=== PATIENT | male | born 1955 | race Caucasian/White ===

== ENCOUNTER → 2019-12-19 12:27 | Outpatient (CLI) | payer OTHER, SELFPAY ==
[2019-12-20 17:35] LABS: Covid-19 Nasal PCR Sendout UK NOT DETECTED
== END ==
PROVIDERS: PCP Family Medicine; Visit Provider Nurse Practitioner
DX: Z03.818 Encounter for observation for suspected exposure to other biological agents ruled out (principal)
CPT/HCPCS: U0003

== ENCOUNTER → 2020-11-19 06:59 | Outpatient (CLI) | payer OTHER, SELFPAY ==
[2020-11-19 07:41] LABS: Adenovirus,PCR Not Detected (NotDetected); Bordetella Pertussis Not Detected (NotDetected); Chlamydophila Pneumoniae, PCR Not Detected (NotDetected); Coronavirus 19, PCR Not Detected (NotDetected); Coronavirus 229E Not Detected (NotDetected); Coronavirus NL63 Not Detected (NotDetected); Coronavirus OC43 Not Detected (NotDetected); Coronovirus HKU1,PCR Not Detected (NotDetected); Human Metapneumovirus Not Detected (NotDetected); Influenza A, PCR Not Detected (NotDetected); Influenza AH1, 2009 Not Detected (NotDetected); Influenza AH1, PCR Not Detected (NotDetected); Influenza AH3,PCR Not Detected (NotDetected); Influenza B, PCR Not Detected (NotDetected); Mycoplasma Pneumoniae, PCR Not Detected (NotDetected); Parainfluenza 1, PCR Not Detected (NotDetected); Parainfluenza 2, PCR Not Detected (NotDetected); Parainfluenza 3, PCR Not Detected (NotDetected); Parainfluenza 4, PCR Not Detected (NotDetected); Respiratory Syncytial Virus Not Detected (NotDetected); Rhinovirus/Enterovirus Not Detected (NotDetected)
[2020-11-19 07:49] LABS: Basophils % 0.7 % (0.1-2.0); Eosinophils # 0.2 K/mm3 (0.0-0.4); Eosinophils % 3.9 % (0.1-12.0); Hematocrit 39.5 % (42.0-52.0); Hemoglobin 12.8 g/dL (14.1-18.0); Lymphocytes # 1.5 K/mm3 (0.7-4.5); Lymphocytes % 27.1 % (10-50); Mean Corpuscular HGB Conc 32.3 g/dL (31.8-35.4); Mean Corpuscular Hemoglobin 25.4 pg (27.0-31.2); Mean Corpuscular Volume 78.7 fl (80-94); Monocytes # 0.5 K/mm3 (0.1-1.0); Neutrophils # 3.4 K/mm3 (1.8-7.8); Neutrophils % 60.4 % (37.0-80.0); Platelet Count 312 K/mm3 (142-424); Red Blood Count 5.03 M/mm3 (4.60-6.20); Red Cell Distribution Width 15.8 % (11.5-17.5); White Blood Count 5.6 K/mm3 (4.8-10.8)
== END ==
PROVIDERS: PCP Family Medicine; Visit Provider Nurse Practitioner
DX: Z11.52 Encounter for screening for COVID-19 (principal); J06.9 Acute upper respiratory infection, unspecified
CPT/HCPCS: 36415; 85025; 87581; 87633; 87798

== ENCOUNTER → 2023-02-07 23:25 | Outpatient (CLI) | payer BC, MEDICARE, SELFPAY | PROVIDERS: PCP Nurse Practitioner; Visit Provider Nurse Practitioner | DX: L03.032 Cellulitis of left toe (principal); B95.7 Other staphylococcus as the cause of diseases classified elsewhere | CPT/HCPCS: 87070; 87205 ==

== ENCOUNTER 2023-11-25 13:05 | Outpatient (CLI) | payer MEDICARE, BC, SELFPAY ==
[2023-11-25 19:09] LABS: Basophils % 0.5 % (0.1-2.0); Eosinophils # 0.2 K/mm3 (0.0-0.4); Eosinophils % 4.1 % (0.1-12.0); Hematocrit 45.6 % (42.0-52.0); Hemoglobin 15.2 g/dL (14.1-18.0); Lymphocytes # 1.5 K/mm3 (0.7-4.5); Lymphocytes % 29.2 % (10-50); Mean Corpuscular HGB Conc 33.3 g/dL (31.8-35.4); Mean Corpuscular Hemoglobin 31.5 pg (27.0-31.2); Mean Corpuscular Volume 94.7 fl (80-94); Mean Platelet Volume 8.5 fl (7.4-10.4); Monocytes # 0.5 K/mm3 (0.1-1.0); Monocytes % 8.6 % (1.7-9.3); Neutrophils % 57.5 % (37.0-80.0); Platelet Count 252 K/mm3 (142-424); Red Blood Count 4.82 M/mm3 (4.60-6.20); Red Cell Distribution Width 14.2 % (11.5-17.5); White Blood Count 5.2 K/mm3 (4.8-10.8)
[2023-11-25 19:12] LABS: Hemoglobin A1C 5.8 % (4.0-6.0)
[2023-11-25 19:57] LABS: Alanine Aminotransferase 36 U/L (12-78); Alkaline Phosphatase 76 U/L (38-126); Anion Gap 10.9 mEq/L (5-15); Aspartate Amino Transferase 35 U/L (17-59); Bilirubin,Total 0.6 mg/dl (0.2-1.3); Blood Urea Nitrogen 16 mg/dl (9-20); Carbon Dioxide 24 mmol/L (22.0-30.0); Chloride 106 mmol/L (98-107); Estimated Glomerular Filt Rate 96 ml/min (>60); GFR (African American) 117 ML/MIN (>60); Glucose 94 mg/dl (74-100); Potassium 3.9 mmoL/L (3.5-5.1); Sodium 137 mmol/L (136-145); Total Protein,Serum 6.5 g/dl (6.3-8.2)
[2023-11-25 20:01] LABS: 25-OH Vitamin D, Total 39.7 ng/mL (30-100)
[2023-11-25 20:05] LABS: Erythrocyte Sedimentation Rate 8 mm/hr (0-20)
[2023-11-25 20:06] LABS: Albumin Level 3.9 g/dl (3.5-5.0); Albumin/Globulin Ratio 1.5 (1.1-1.8); Globulin 2.6 g/dL (1.3-3.2)
[2023-11-25 20:13] LABS: C-Reactive Protein 6.2 mg/L (0-4)
[2023-11-25 20:53] LABS: Prostate Specific Ag Screen 3.3 ng/ml (0.0-4.0); Thyroid Stimulating Hormone 0.77 uIU/mL (0.465-4.68)
[2023-11-25 21:12] LABS: Vitamin B12 333 pg/mL (239-931)
[2023-11-27 14:16] LABS: Testosterone,Total 234 ng/dL (264-916)
[2023-11-27 17:59] LABS: Anti-Centromere B Antibodies <0.2 AI (0.0-0.9); Anti-DNA (DS) Ab Qn <1 IU/mL (0-9); Anti-Jo-1 <0.2 AI (0.0-0.9); Anti-Smith Antibody <0.2 AI (0.0-0.9); Antichromatin Antibodies <0.2 AI (0.0-0.9); Antiscleroderma-70 Antibodies <0.2 AI (0.0-0.9); RNP Antibodies 0.4 AI (0.0-0.9); Sjogren's Anti-SS-A <0.2 AI (0.0-0.9); Sjogren's Anti-SS-B <0.2 AI (0.0-0.9)
== END 2023-11-25 23:59 | disposition home or self-care (01) ==
LOC: LAB.DROPOF 11-26 10:11
PROVIDERS: PCP Nurse Practitioner; Visit Provider Nurse Practitioner
DX: R53.83 Other fatigue (principal); I10 Essential (primary) hypertension; M25.50 Pain in unspecified joint; F32.A Depression, unspecified; E66.9 Obesity, unspecified; Z68.39 Body mass index [BMI] 39.0-39.9, adult; Z12.5 Encounter for screening for malignant neoplasm of prostate
CPT/HCPCS: 80053; 82306; 82607; 83036; 84403; 84439; 84443; 85025; 85651; 86140; 86225; 86235; G0103

== ENCOUNTER → 2023-12-13 12:13 | Outpatient (CLI) | payer MEDICARE, BC, SELFPAY | LOC: SL 12:17 | PROVIDERS: PCP Nurse Practitioner; Visit Provider Nurse Practitioner | DX: G47.33 Obstructive sleep apnea (adult) (pediatric) (principal); G47.36 Sleep related hypoventilation in conditions classified elsewhere | CPT/HCPCS: G0399 ==

== ENCOUNTER 2024-01-16 13:35 | Emergency (ER) | payer MEDICARE, BC, SELFPAY ==
--- NOTE | 2024-01-16 13:48 | ECG_ITS ---
APPROVED REPORT Exam: Resting ECG HR:82 bpm ECG Measurements Heart Rate 82 AXES KS 188 P 53 QRSd 157 QRS 220 QT 419 T 35 QTc 457 Conclusion Left bundle branch block Left axis deviation Electronically signed by : POLY JAMISON, 01/16/2024 14:54:09
[2024-01-16 13:49] VITALS: BP 191/116; PULSE 76; RESP 16; TEMP 36.4; O2SAT 98; BMI 38.0
--- NOTE | 2024-01-16 13:55 | PC.NURSE ---
dr gonzalez at bedside
[2024-01-16 14:00] VITALS: BP 155/92; PULSE 76; O2SAT 97
--- NOTE | 2024-01-16 14:25 | CT_ITS ---
FINAL REPORT TECHNIQUE: NASCET technique utilized for stenosis evaluation. This study was performed with techniques to keep radiation doses as low as reasonably achievable (ALARA). Individualized dose reduction techniques using automated exposure control or adjustment of mA and/or kV according to the patient's size were employed. CLINICAL HISTORY: confusion, emotional swings, imbalance FINDINGS: RIGHT CAROTID: No significant stenosis is seen of the cervical common or internal carotid artery. LEFT CAROTID: No significant stenosis seen of the cervical common or internal carotid artery. VERTEBRALS: The vertebral arteries are patent and codominant. No significant stenosis is present. IMPRESSION: No significant arterial abnormality. Reviewed, Interpreted and Dictated by Dm Carranza MD Transcribed by Leila Cerrato Authenticated and [facility]
--- NOTE | 2024-01-16 14:25 | CT_ITS ---
FINAL REPORT TECHNIQUE: thin section axial CT with and without IV contrast supplemented with multiplanar 3-D reconstruction of the head. This study was performed with techniques to keep radiation doses as low as reasonably achievable, (ALARA)individualized dose reduction techniques using automated exposure control or adjustment of mA and/or kV according to the patient's size were employed. CLINICAL HISTORY: confusion, emotional swings, imbalance FINDINGS: The cranial circulation is unremarkable. There is no significant stenosis, aneurysm or occlusion. IMPRESSION: No acute process. Reviewed, Interpreted and Dictated by Dm Carranza MD Transcribed by Lelia Cerrato Authenticated and . [facility]
--- NOTE | 2024-01-16 14:25 | CT_ITS ---
FINAL REPORT TECHNIQUE: Axial CT images were performed through the head. Coronal reformatted images were submitted. This study was performed with techniques to keep radiation doses as low as reasonably achievable (ALARA). Individualized dose reduction techniques using automated exposure control or adjustment of mA and/or kV according to the patient's size were employed. CLINICAL HISTORY: confusion, emotional swings, imbalance FINDINGS: There is mild atrophy. The ventricles are normal in size. There is no evidence of hemorrhage. There is no mass or edema identified. There is no abnormal extra-axial fluid seen. There is a shirin cisterna magna. There is a retention cyst or polyp in the right maxillary sinus. IMPRESSION: No acute intracranial process. Reviewed, Interpreted and Dictated by Dm Carranza MD Transcribed by Leila Cerrato Authenticated and . [facility]
[2024-01-16 14:30] VITALS: BP 141/93; PULSE 77; O2SAT 97
--- NOTE | 2024-01-16 14:33 | HMH.EDGENADL ---
Discharge Plan Disposition Patient Disposition: Home, Self-Care Prescriptions Prescriptions: No Action metoprolol succinate 100 mg tablet extended release 24 hr 100 mg PO DAILY famotidine [Pepcid] 20 mg tablet 20 mg PO HS omeprazole 20 mg capsule,delayed release(DR/EC) 40 mg PO DAILY clonidine HCl 0.1 mg tablet 0.1 mg PO HS Qty: 30 2RF Repatha SureClick 140 mg/mL pen injector 140 mg SQ Q2W Referrals Follow up/Referrals: Jose Alfredo Tillman [Primary Care Provider] - See instructions Activity Restrictions/Add. Instructions Additional Instructions/Restrictions: As discussed there is no emergent medical condition identified today however all physiologic pathology have not been ruled out and I recommend you follow-up with your primary care doctor as well as a neurologist. You may return with any significant worsening of your symptoms. Clinical Impressions Clinical Impression: Feeling of sadness, Encounter for medical screening examination Print Language Print Language: Sinhala Discharge ED Provider: Quang Vallejo General Adult HPI <Quang Vallejo MD - Last Filed: 01/16/24 15:17> General Chief complaint: Anxiety Stated complaint: weakness Time Seen by Provider: 01/16/24 13:45 Mode of Arrival: EMS Source of Information: Patient and Spouse Limitations: No Limitations Description of Symptoms (Recalled from ER Triage Doc. by RN): pt arrives via EMS and transferred himself from the EMS stretcher to our bed, however, when he stood up he was unstable on his feet and almost fell. pt and state the pt is overly emotional, anxious, intermittant confusion, and he does not want to leave the house. pt is weeping at this time. 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 pt started [employer] 1 month ago. pts states this began the evening of 01/08 when he started c/o chest fluttering. pt was seen at [facility] the next day. The only findings were LBBB, 1st degree av block, and K 3.2 History of Present Illness HPI narrative: Please note that above description of symptoms, in this electronic medical record under categorization of recalled from ER triage doctor by RN are reflective of an initial nursing assessment, however, is not reflective of my full history and physical exam that was personally taken and clarified. Consequentially, this preceding description of symptoms, which may include the patient's categorized chief complaint in the EMR, do not reflect my personal clinical impression, and the ultimate description of history of present illness and patient stated complaints should be deferred to this section of the note. Unless stated otherwise or congruent with this section of the note, additional signs, symptoms, or incongruence should be interpreted as inaccurate with my clinical impression. Related Data Home Medications ?Medication ?Instructions ?Recorded ?Confirmed evolocumab 140 mg/mL subcutaneous 140 mg SQ Q2W 11/25/23 11/25/23 pen injector (Repatha SureClick) famotidine 20 mg tablet (Pepcid) 20 mg PO HS 11/25/23 11/25/23 metoprolol succinate 100 mg 100 mg PO DAILY 11/25/23 11/25/23 tablet,extended release 24 hr omeprazole 20 mg capsule,delayed 40 mg PO DAILY 11/25/23 11/25/23 release Previous Rx's ?Medication ?Instructions ?Recorded clonidine HCl 0.1 mg tablet 0.1 mg PO HS #30 tabs 11/25/23 Allergies Allergy/AdvReac Type Severity Reaction Status Date / Time gabapentin Allergy Other Verified 01/16/24 14:00 [facility] <Quang Vallejo MD - Last Filed: 01/16/24 15:17> [facility] Disclaimer: The information contained in this section may have been updated after the patient was seen, as this information can be updated by other users. Medical History Sleep apnea Arthralgia Depression Essential hypertension Acute midline low back pain Social History Smoking Status: Never smoker alcohol intake: never current occupational status: employed Travel in the last 8 weeks: None Other Medical History Have you received the Pneumonia Vaccine: No <Quang Vallejo MD - Last Filed: 01/16/24 15:17> ROS Obtained: Yes All systems reviewed & no additional complaints except as documented Physical Exam <Quang Vallejo MD - Last Filed: 01/16/24 15:17> General General appearance: alert Head Head exam: atraumatic and normocephalic Eye Eye exam: Present normal appearance, PERRL and EOMI Neck Neck exam: Present normal inspection, full ROM and trachea midline Respiratory Respiratory exam: Present normal lung sounds bilaterally; Absent respiratory distress, wheezes, stridor, accessory muscle use or prolonged expiratory phase Cardiovascular Cardiovascular exam: Present regular rate, normal rhythm and other (Pulses equal symmetric in upper and lower extremities) Abdominal Exam Abdominal exam: Present soft; Absent distention, tenderness or pulsatile mass Extremities Exam Extremities exam: Absent edema Neurological Exam Neurological exam: Present alert, oriented X3, CN II-XII intact and normal gait; Absent motor sensory deficit Skin Skin exam: Present warm and dry; Absent diaphoresis or erythema Medical Decision Making <Quang Vallejo MD - Last Filed: 01/16/24 15:17> Medical Records Medical records reviewed: Yes I reviewed the patient's medical records. Screening: Per USPSTF and CDC recommendations, given the prevalence of disease in our region, it is our hospital?s policy to screen for HIV and viral Hepatitis for all patients aged 18 and over and those with ongoing risk factors. Christopher Inquiry Pt receiving controlled substance: No Christopher was queried for this patient: No Vital Signs: 01/16/24 13:49 01/16/24 14:00 01/16/24 14:30 Temperature 97.6 F Temperature Source Oral Pulse Rate 76 77 Pulse Rate [Left] 76 Respiratory Rate 16 Blood Pressure 155/92 H 141/93 H Blood Pressure [Right Arm] 191/116 H Blood Pressure Mean [Right Arm] 141 Blood Pressure Source [Right Arm] Automatic Cuff Blood Pressure Position [Right Arm] Sitting 02 Sat by Pulse Oximetry 98 97 97 Oxygen Delivery Method Room Air 01/16/24 15:00 Temperature Temperature Source Pulse Rate 70 Pulse Rate [Left] Respiratory Rate Blood Pressure 143/84 H Blood Pressure [Right Arm] Blood Pressure Mean [Right Arm] Blood Pressure Source [Right Arm] Blood Pressure Position [Right Arm] 02 Sat by Pulse Oximetry 96 Oxygen Delivery Method Lab Data Lab Results 01/16/24 13:40: WBC 7.2, RBC 5.08, Hgb 16.3, Hct 46.2, MCV 90.9, MCH 32.1 H, MCHC 35.3, RDW 14.0, Plt Count 243, MPV 7.6, Neut % (Auto) 44.0, Lymph % (Auto) 45.1, Cross % (Auto) 8.0, Eos % (Auto) 2.1, Baso % (Auto) 0.7, Neut # (Auto) 3.2, Lymph # (Auto) 3.3, Cross # (Auto) 0.6, Eos # (Auto) 0.2, Baso # (Auto) 0.1, Sodium 135 L, Potassium 3.7, Chloride 105, Carbon Dioxide 27, Anion Gap 6.7, BUN 14, Creatinine 0.90, Estimated Creat Clear 129, Estimated GFR 84, Est GFR ( Amer) 102, Glucose 109 H, Calcium 9.2, Magnesium 2.0, Total Bilirubin 0.9, AST 52, ALT 45, Alkaline Phosphatase 69, Ammonia < 9 L, Troponin I < 0.01, Total Protein 7.1, Albumin 4.4, Globulin 2.7, Albumin/Globulin Ratio 1.6, TSH 0.80, Thyroxine (T4) 12.6 H, HIV 1&2 Antibody Rapid Nonreactive 01/16/24 15:26: Urine Opiates Screen Negative, Urine Methadone Screen Negative, Ur Barbituates Screen Negative, Ur Phencyclidine Scrn Negative, Ur Amphetamines Screen Negative, U Benzodiazepines Scrn Negative, Urine Cocaine Screen Negative, U Marijuana (THC) Screen Negative 01/16/24 15:27: Urine Color Yellow, Urine Appearance Clear, Urine pH 6.5, Ur Specific [place] 1.010, Urine Protein Negative, Urine Glucose (UA) Negative, Urine Ketones Negative, Urine Blood Negative, Urine Nitrate Negative, Urine Bilirubin Negative, Urine Urobilinogen 0.2, Ur Leukocyte Esterase Negative, Urine RBC None, Urine WBC None, Ur Squamous Epith Cells None, Urine Bacteria None 01/16/24 13:40 01/16/24 13:40 Orders (Tests/Meds): ED MEDICATIONS Generic Name Dose Route Start Last Admin Trade Name Freq PRN Reason Stop Dose Admin Sodium Chloride 10 ml 01/16/24 14:51 01/16/24 14:52 Sodium Chloride 0.9% 10ml Syr (Rad Only) IV 02/15/24 14:50 10 ml NEEDED PRN Administration Maintain IV Site Discontinued Medications Generic Name Dose Route Start Last Admin Trade Name Freq PRN Reason Stop Dose Admin Iopamidol 80 ml 01/16/24 14:51 01/16/24 14:52 Iopamidol-370 (76%);100ml Bottle IV 01/16/24 14:52 80 ml ONCE ONE Administration Sodium Chloride 50 ml 01/16/24 14:51 01/16/24 14:51 0.9 % Sodium Chloride 50 Ml Vial IV 01/16/24 14:52 50 ml ONCE ONE Administration ORDERS Category Date Time Status CT angio head Stat Cat Scan 01/16/24 14:[address] angio neck Stat Cat Scan 01/16/24 14:[address] head/brain wo con Stat Cat Scan 01/16/24 14:25 Completed Ammonia Stat Lab 01/16/24 13:40 Completed CBC w/Auto Diff [Complete Blood Count Auto Diff] Stat Lab 01/16/24 13:40 Completed CMP [Comprehensive Metabolic Panel] Stat Lab 01/16/24 13:40 Completed HIV (1&2) Antibody Rapid Stat Lab 01/16/24 13:40 Completed Hep C Ab with Reflex to RNA Stat Lab 01/16/24 13:40 Received Magnesium Stat Lab 01/16/24 13:40 Completed T4 (Thyroxine) Stat Lab 01/16/24 13:40 Completed TSH [Thyroid Stimulating Hormone] Stat Lab 01/16/24 13:40 Completed Trop I [Troponin I] Stat Lab 01/16/24 13:40 Completed Troponin I Q3H Lab 01/16/24 17:30 Ordered Troponin I Q3H Lab 01/16/24 20:30 Ordered UA [Urinalysis and Microscopic] Stat Lab 01/16/24 15:27 Completed UDS [Drug Screen,Urine] Stat Lab 01/16/24 15:26 Completed Medical Decision Narrative: Is a 68-year-old male history of hypertension and sleep apnea presenting with multiple complaints. Per patient and family, patient has had 1 month of progressive cognitive decline. States that he was seen by family doctor because patient has random emotional outburst where he just becomes tearful for no reason. This happens throughout the day, randomly, patient appears to have no control over this has not happened multiple times in the room just as I was talking to him. Per family and patient, he is also having multiple memory lapses. States that they have lived in the same house for over 30 years, patient is forgetting where things are when they have been there the entire time. Patient forgetting names, places, people and things. Intermittently feeling lightheaded when standing up, but not having any syncopal episodes, chest pain, nausea, vomiting, fevers, chills, unintended weight loss. Patient denies any head trauma. 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 I do tend to agree. Patient denies family history of dementia, seizures, any other neurologic deficits. Was seen at [facility] on 01/09, full workup including CT head without contrast was completely negative. I reviewed labs and imaging results on paperwork they brought in. History obtained with patient, family, outside hospital paperwork. On my independent evaluation of patient, well-appearing. Placed on continuous cardiac monitoring and pulse oximetry and patient is hypertensive 191/116, nontachycardic 76 beats a minute and saturating appropriately on room air at 98%. Patient neurologically intact including cranial nerve, cerebellar, motor and sensory exams. 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 Cardiopulmonary exam within normal limits with no murmurs gallops or rubs, no lower extremity edema, pulses equal and symmetric. Abdomen soft, nontender, nondistended. Intermittently bursting into tears for no reason. My differential includes frontotemporal dementia versus other progressive cognitive decline, metabolic abnormality, endocrinologic abnormality, depression, anxiety, PTSD, other psychiatric comorbidities, among others. EKG independently interpreted and patient has what appears to be incomplete left bundle branch block with widened QRS 157 ms. TN 188, QTc 457 prolonged. Left axis deviation. No acute ischemic change. Labs and imaging orders placed. On independent interpretation, nonactionable hematologic workup. Negative ammonia. Negative troponin. T4 a little high at 12.6. TSH pending. Imaging pending at time of handoff to oncoming physician [employer] disclaimer Much of this encounter note is an electronic manager technical spoken language to printed text. Electronic manager technical of the spoken language may permit errors. Although I have reviewed the note, some errors may still exist. <Sabino Moody MD - Last Filed: 01/16/24 16:30> Vital Signs: 01/16/24 13:49 01/16/24 14:00 01/16/24 14:30 Temperature 97.6 F Temperature Source Oral Pulse Rate 76 77 Pulse Rate [Left] 76 Respiratory Rate 16 Blood Pressure 155/92 H 141/93 H Blood Pressure [Right Arm] 191/116 H Blood Pressure Mean [Right Arm] 141 Blood Pressure Source [Right Arm] Automatic Cuff Blood Pressure Position [Right Arm] Sitting 02 Sat by Pulse Oximetry 98 97 97 Oxygen Delivery Method Room Air 01/16/24 15:00 Temperature Temperature Source Pulse Rate 70 Pulse Rate [Left] Respiratory Rate Blood Pressure 143/84 H Blood Pressure [Right Arm] Blood Pressure Mean [Right Arm] Blood Pressure Source [Right Arm] Blood Pressure Position [Right Arm] 02 Sat by Pulse Oximetry 96 Oxygen Delivery Method Lab Data Lab results reviewed: Yes I reviewed the patient's lab results. Lab Results 01/16/24 13:40: WBC 7.2, RBC 5.08, Hgb 16.3, Hct 46.2, MCV 90.9, MCH 32.1 H, MCHC 35.3, RDW 14.0, Plt Count 243, MPV 7.6, Neut % (Auto) 44.0, Lymph % (Auto) 45.1, Cross % (Auto) 8.0, Eos % (Auto) 2.1, Baso % (Auto) 0.7, Neut # (Auto) 3.2, Lymph # (Auto) 3.3, Cross # (Auto) 0.6, Eos # (Auto) 0.2, Baso # (Auto) 0.1, Sodium 135 L, Potassium 3.7, Chloride 105, Carbon Dioxide 27, Anion Gap 6.7, BUN 14, Creatinine 0.90, Estimated Creat Clear 129, Estimated GFR 84, Est GFR ( Amer) 102, Glucose 109 H, Calcium 9.2, Magnesium 2.0, Total Bilirubin 0.9, AST 52, ALT 45, Alkaline Phosphatase 69, Ammonia < 9 L, Troponin I < 0.01, Total Protein 7.1, Albumin 4.4, Globulin 2.7, Albumin/Globulin Ratio 1.6, TSH 0.80, Thyroxine (T4) 12.6 H, HIV 1&2 Antibody Rapid Nonreactive 01/16/24 15:26: Urine Opiates Screen Negative, Urine Methadone Screen Negative, Ur Barbituates Screen Negative, Ur Phencyclidine Scrn Negative, Ur Amphetamines Screen Negative, U Benzodiazepines Scrn Negative, Urine Cocaine Screen Negative, U Marijuana (THC) Screen Negative 01/16/24 15:27: Urine Color Yellow, Urine Appearance Clear, Urine pH 6.5, Ur Specific [place] 1.010, Urine Protein Negative, Urine Glucose (UA) Negative, Urine Ketones Negative, Urine Blood Negative, Urine Nitrate Negative, Urine Bilirubin Negative, Urine Urobilinogen 0.2, Ur Leukocyte Esterase Negative, Urine RBC None, Urine WBC None, Ur Squamous Epith Cells None, Urine Bacteria None Orders (Tests/Meds): ED MEDICATIONS Generic Name Dose Route Start Last Admin Trade Name Freq PRN Reason Stop Dose Admin Sodium Chloride 10 ml 01/16/24 14:51 01/16/24 14:52 Sodium Chloride 0.9% 10ml Syr (Rad Only) IV 02/15/24 14:50 10 ml NEEDED PRN Administration Maintain IV Site Discontinued Medications Generic Name Dose Route Start Last Admin Trade Name Freq PRN Reason Stop Dose Admin Iopamidol 80 ml 01/16/24 14:51 01/16/24 14:52 Iopamidol-370 (76%);100ml Bottle IV 01/16/24 14:52 80 ml ONCE ONE Administration Sodium Chloride 50 ml 01/16/24 14:51 01/16/24 14:51 0.9 % Sodium Chloride 50 Ml Vial IV 01/16/24 14:52 50 ml ONCE ONE Administration ORDERS Category Date Time Status CT angio head Stat Cat Scan 01/16/24 14:[address] angio neck Stat Cat Scan 01/16/24 14:[address] head/brain wo con Stat Cat Scan 01/16/24 14:25 Completed Ammonia Stat Lab 01/16/24 13:40 Completed CBC w/Auto Diff [Complete Blood Count Auto Diff] Stat Lab 01/16/24 13:40 Completed CMP [Comprehensive Metabolic Panel] Stat Lab 01/16/24 13:40 Completed HIV (1&2) Antibody Rapid Stat Lab 01/16/24 13:40 Completed Hep C Ab with Reflex to RNA Stat Lab 01/16/24 13:40 Received Magnesium Stat Lab 01/16/24 13:40 Completed T4 (Thyroxine) Stat Lab 01/16/24 13:40 Completed TSH [Thyroid Stimulating Hormone] Stat Lab 01/16/24 13:40 Completed Trop I [Troponin I] Stat Lab 01/16/24 13:40 Completed Troponin I Q3H Lab 01/16/24 17:30 Ordered Troponin I Q3H Lab 01/16/24 20:30 Ordered UA [Urinalysis and Microscopic] Stat Lab 01/16/24 15:27 Completed UDS [Drug Screen,Urine] Stat Lab 01/16/24 15:26 Completed Medical Decision Narrative: Is a 68-year-old male history of hypertension and sleep apnea presenting with multiple complaints. Per patient and family, patient has had 1 month of progressive cognitive decline. States that he was seen by family doctor because patient has random emotional outburst where he just becomes tearful for no reason. This happens throughout the day, randomly, patient appears to have no control over this has not happened multiple times in the room just as I was talking to him. Per family and patient, he is also having multiple memory lapses. States that they have lived in the same house for over 30 years, patient is forgetting where things are when they have been there the entire time. Patient forgetting names, places, people and things. Intermittently feeling lightheaded when standing up, but not having any syncopal episodes, chest pain, nausea, vomiting, fevers, chills, unintended weight loss. Patient denies any head trauma. 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 I do tend to agree. Patient denies family history of dementia, seizures, any other neurologic deficits. Was seen at [facility] on 01/09, full workup including CT head without contrast was completely negative. I reviewed labs and imaging results on paperwork they brought in. History obtained with patient, family, outside hospital paperwork. On my independent evaluation of patient, well-appearing. Placed on continuous cardiac monitoring and pulse oximetry and patient is hypertensive 191/116, nontachycardic 76 beats a minute and saturating appropriately on room air at 98%. Patient neurologically intact including cranial nerve, cerebellar, motor and sensory exams. 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 Cardiopulmonary exam within normal limits with no murmurs gallops or rubs, no lower extremity edema, pulses equal and symmetric. Abdomen soft, nontender, nondistended. Intermittently bursting into tears for no reason. My differential includes frontotemporal dementia versus other progressive cognitive decline, metabolic abnormality, endocrinologic abnormality, depression, anxiety, PTSD, other psychiatric comorbidities, among others. EKG independently interpreted and patient has what appears to be incomplete left bundle branch block with widened QRS 157 ms. TN 188, QTc 457 prolonged. Left axis deviation. No acute ischemic change. Labs and imaging orders placed. On independent interpretation, nonactionable hematologic workup. Negative ammonia. Negative troponin. T4 a little high at 12.6. TSH pending. Imaging pending at time of handoff to oncoming physician [employer] disclaimer Much of this encounter note is an electronic manager technical spoken language to printed text. Electronic manager technical of the spoken language may permit errors. Although I have reviewed the note, some errors may still exist. Reassessment this is Dr. Moody I took over from Dr. Vallejo at [address] scans were pending as well as the majority of the laboratory workup which I personally reviewed and interpreted. Specifically there is no evidence of any intracranial acute pathology. There is mild brain atrophy and while I cannot definitively rule out any separate frontotemporal dementia or other forms of dementia no emergent medical condition was identified. Labs otherwise unremarkable again from an emergency standpoint. I did reassure him that there is no acute need for hospitalization or specialist intervention at this moment but he was encouraged to follow-up with his primary care doctor as well as with neurology. He understands that all pathology has not been ruled out at this point from a physiologic standpoint and that he needs to continue to discuss this in an outpatient setting with his physicians. Return precautions if signs patient was discharged in stable condition. Critical Care <Quang Vallejo MD - Last Filed: 01/16/24 15:17> Critical Care Time Critical Care Time: No
[2024-01-16 14:35] LABS: Basophils # 0.1 K/mm3 (0-0.2); Basophils % 0.7 % (0.1-2.0); Eosinophils # 0.2 K/mm3 (0.0-0.4); Eosinophils % 2.1 % (0.1-12.0); Hematocrit 46.2 % (42.0-52.0); Hemoglobin 16.3 g/dL (14.1-18.0); Lymphocytes # 3.3 K/mm3 (0.7-4.5); Lymphocytes % 45.1 % (10-50); Mean Corpuscular HGB Conc 35.3 g/dL (31.8-35.4); Mean Corpuscular Hemoglobin 32.1 pg (27.0-31.2); Mean Corpuscular Volume 90.9 fl (80-94); Mean Platelet Volume 7.6 fl (7.4-10.4); Monocytes # 0.6 K/mm3 (0.1-1.0); Neutrophils # 3.2 K/mm3 (1.8-7.8); Platelet Count 243 K/mm3 (142-424); Red Blood Count 5.08 M/mm3 (4.60-6.20); White Blood Count 7.2 K/mm3 (4.8-10.8)
[2024-01-16 14:38] LABS: Alanine Aminotransferase 45 U/L (12-78); Albumin Level 4.4 g/dl (3.5-5.0); Albumin/Globulin Ratio 1.6 (1.1-1.8); Alkaline Phosphatase 69 U/L (38-126); Aspartate Amino Transferase 52 U/L (17-59); Bilirubin,Total 0.9 mg/dl (0.2-1.3); Blood Urea Nitrogen 14 mg/dl (9-20); Calcium 9.2 mg/dl (8.4-10.2); Carbon Dioxide 27 mmol/L (22.0-30.0); Chloride 105 mmol/L (98-107); Creatinine Clearance Estimated 129 mL/min (50-200); Estimated Glomerular Filt Rate 84 ml/min (>60); GFR (African American) 102 ML/MIN (>60); Globulin 2.7 g/dL (1.3-3.2); Glucose 109 mg/dl (74-100); Sodium 135 mmol/L (136-145); Total Protein,Serum 7.1 g/dl (6.3-8.2)
[2024-01-16 14:39] LABS: Anion Gap 6.7 mEq/L (5-15); Potassium 3.7 mmoL/L (3.5-5.1)
[2024-01-16 14:42] LABS: Ammonia < 9 umol/L (9-30)
[2024-01-16] MEDS: 0.9 % SODIUM CHLORIDE 50 ML VIAL IV (14:51)
[2024-01-16] MEDS: IOPAMIDOL-370 (76%);100ML BOTTLE 80 ML IV (14:52)
[2024-01-16] MEDS: SODIUM CHLORIDE 0.9% 10ML SYR (RAD ONLY) 10 ML IV (14:52)
[2024-01-16 14:53] LABS: Troponin I < 0.01 ng/ml (0.00-0.034)
[2024-01-16 14:56] LABS: T4 (Thyroxine) 12.6 ug/dl (5.53-11.0)
[2024-01-16 14:57] LABS: HIV (1&2) Antibody Rapid NONREACTIVE (NONREACTIVE)
[2024-01-16 15:00] VITALS: BP 143/84; PULSE 70; O2SAT 96
[2024-01-16 15:33] LABS: Microscopic, Urine URINE MICROSCOPIC (MICROSCOPIC)
[2024-01-16 15:35] LABS: Appearance,Urine CLEAR (Clear); Bilirubin,Urine Negative (Negative); Blood, Urine Negative (Negative); Color,Urine YELLOW (Yellow); Glucose,Urine (UA) Negative (Negative); Ketones,Urine Negative (Negative); Leukocyte Esterase,Urine Negative (Negative); Nitrate,Urine Negative (Negative); PH,Urine 6.5 (5.0-8.5); Protein,Urine Negative (Negative); Urobilinogen,Urine 0.2 EU/dl (0.2)
[2024-01-16 15:48] LABS: Barbiturates Screen,Urine Negative ng/ml (<200)
[2024-01-16 15:49] LABS: Amphetamine/Metha Screen,Urine Negative ng/ml (<1000); Benzodiazepines Screen,Urine Negative ng/ml (<200)
[2024-01-16 15:50] LABS: Methadone Screen,Urine Negative ng/ml (<300)
[2024-01-16 15:51] LABS: Cannabinoid Screen,Urine Negative ng/ml (<50); Cocaine Screen,Urine Negative ng/ml (<300)
[2024-01-16 15:52] LABS: Opiate Screen,Urine Negative ng/ml (<300)
[2024-01-16 15:53] LABS: Phencyclidine Screen,Urine Negative ng/ml (<25)
[2024-01-16 16:29] VITALS: BP 143/84; PULSE 77; RESP 16; TEMP 36.6; O2SAT 99
[2024-01-17 08:28] LABS: HCV Ab Non Reactive (Non Reactive)
== END 2024-01-16 16:36 | disposition home or self-care (01) ==
PROVIDERS: Emergency Provider Emergency Medicine; PCP Pediatrics
DX: R41.0 Disorientation, unspecified (principal); I10 Essential (primary) hypertension; F32.A Depression, unspecified; G47.30 Sleep apnea, unspecified
CPT/HCPCS: 70450; 70496; 70498; 80053; 80307; 81001; 82140; 83735; 84436; 84443; 84484; 85025; 87389; 93005; Q9967

== ENCOUNTER 2024-01-16 18:41 | Outpatient (CLI) | payer MEDICARE, BC, SELFPAY | END 2024-01-16 23:59 | disposition home or self-care (01) | LOC: LAB.DROPOF 18:43 | PROVIDERS: PCP Nurse Practitioner; Visit Provider Nurse Practitioner | DX: R41.0 Disorientation, unspecified (principal); I10 Essential (primary) hypertension; F32.A Depression, unspecified; G47.30 Sleep apnea, unspecified | CPT/HCPCS: 70450; 70496; 70498; 80053; 80307; 81001; 82140; 83735; 84436; 84443; 84484; 85025; 87086; 87389; 93005; 99284; Q9967 ==

== ENCOUNTER 2024-09-11 13:56 | Outpatient (CLI) | payer MEDICARE, SELFPAY ==
--- OUTSIDE RECORDS SUMMARY | 2024-09-04 09:22 | XMS_ITS | Encounter Summary ---
Author Organization [place] [address] Care Team Providers Care Windows Systems Engineer Name Role Phone Adarsh Collins MD Primary Care Provider [phone] Sharon Kilpatrick MD Unavailable [phone] Reason for Visit * MRI/CAT Scan (Routine) - Closed Specialty Diagnoses / Procedures Referred By Controcio t Referred To Contact Radiology Diagnoses Meningioma (HCC) Procedures MRI BRAIN W WO CONTRAST Fara Jhaveri MD [facility] [place] [address] Phone: tel: fax: Referral ID Status Reason Start Date Expiration Date Visits Re quested Visits Authorized [id number] Closed 02/05/2024 02/04/2025 1 1 Encounter Details Date Type Department Care Team (Late st Contact Info) Description 09/04/2024 9:22 AM EDT - 09/04/2024 11:59 PM EDT Hospital Encounter [facility] MRI [address] [place] [address] Fara Jhaveri MD [facility]2 [place] [address] Discharge Disposition: Home or Self Care Social [...] Date Recorded PHQ-2 Total Score 0 06/18/2022 [facility] - Occupational Stress [...] SubQ Pen InjectorIndications :Coronary artery disease involving [place] coronary artery of [place] heart with angina pectoris,Mixed hyperlipidemia Subcutaneous (Inject under the skin) 1 mL every 14 days. 2 mL 12 09/07/2024 3:09 PM EDT 5 famotidine (PEPCID) 20 mg Oral Tablet Take 20 mg by mouth 2 times daily. 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,Morbid obesity with BMI [...] Care Team (Late st Contact Info) Description 10/13/2024 9:45 AM EDT Appointment [facility] MRI [address] [place], [place] [id number] Fara Jhaveri MD [address] [place] [address] documented as of this encounter Goals Goal [...] documented as of this encounter Care Teams Windows Systems Engineer Relationship Specialty Start Date End Date Adarsh Collins MD [address] [place] [address] [place] [phone] PCP - General Family Medicine 06/11/11 Sharon Kilpatrick MD [address] [place] [address] [place] [phone] Consulting Physician Internal Medicine-Nephrology 06/18/19 documented as of this encounter
--- OUTSIDE RECORDS SUMMARY | 2024-09-11 14:01 | XMS_ITS | Encounter Summary ---
Author Organization [place] [address] Care Team Providers Care Kettle Cook Name Role Phone Adarsh Collins MD Primary Care Provider [phone] Sharon Kilpatrick MD Unavailable [phone] Reason for Visit * Reason Onset Date Comments Medication Refill 07/20/2024 Encounter Details Date Type Department Care Team (Late st Contact Info) Description 07/20/2024 Refill [facility] [place] [id number] Curtis Zacarias MD [address] [place] [phone] Medication Refill Social History Tobacco Use Types Packs/Day Years [...] Date Recorded PHQ-2 Total Score 0 06/18/2022 [facility] [place] [facility] - Occupational Stress [...] Suellen Meade CCMA documented in this encounter Ordered Prescriptions Prescription Sig Dispense Quantity Refills Last Filled Start Date End Date metoprolol succinate ER (TOPROL-XL) 100 mg Oral Tablet Sustained Release 24 hrIndications: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 90 Tablet 1 07/20/2024 documented in this encounter Plan of Treatment Upcoming Encounters Date Type Department Care Team (Late st Contact Info) Description 10/13/2024 9:45 AM EDT Appointment [facility] [address] [place] [address] Fara Jhaveri MD [address] [place] [address] documented as of this encounter Goals Goal Patient Goal Type Associated Problems Recent Progress Patient-Stated? 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, unspecified Essential hypertension Unspecified essential hypertension Coronary artery disease involving [place] coronary artery of [place] heart with angina pectoris Morbid obesity with BMI of 40.0-44.9, adult (HCC) documented in this encounter Discontinued Medications Medication Sig Discontinue Reason Start Date End Da te metoprolol succinate ER (TOPROL-XL) 100 mg Oral Tablet Sustained Release 24 hrIndications:Cardiomyop athy due to systemic disease (HCC),Essential hypertension,Coronary artery 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 Reorder 01/22/2024 07/20/2024 documented as of this encounter Additional Health Concerns Assessment Noted Time A fall risk assessment has been complete d for the patient 06/18/2022 8:30 AM EDT documented as of this encounter Care Teams Kettle Cook Relationship Specialty Start Date End Date Adarsh Collins MD [address] [place] [phone] PCP - General Family Medicine 06/11/11 Sharon Kilpatrick MD [address] [facility] [address] [place] [phone] Consulting Physician Internal Medicine-Nephrology 06/18/19 documented as of this encounter
--- NOTE | 2024-09-11 14:02 | XR_ITS ---
FINAL REPORT TECHNIQUE: 3 views right toes CLINICAL HISTORY: cellulitis and ulcer of right toe COMPARISON: None FINDINGS: RIGHT TOES 3 views of the right toes were obtained. There is no acute fracture or dislocation. The joint spaces are intact. There is soft tissue edema adjacent to the lateral fifth MTP joint. No evidence of bone destruction is identified. IMPRESSION: No acute fracture. Reviewed, Interpreted and Dictated by Dm Carranza MD Transcribed by Noreen Gonzalez Authenticated and [facility]
--- OUTSIDE RECORDS SUMMARY | 2024-09-11 14:02 | XMS_ITS | Encounter Summary ---
Author Organization [place] [address] Care Team Providers Care Inspector Watch Train Name Role Phone Adarsh Collins MD Primary Care Provider [phone] Sharon Kilpatrick MD Unavailable [phone] Karol Burroughs RN Unavailable Unavailabl e Encounter Details Date Type Department Care Team (Late st Contact Info) Description 02/23/2019 Orders Only [facility] [address] [phone] Claudia Dunn MD Social History Tobacco Use Types Packs/Day Years Used Date Smoking Tobacco: Never Smokeless Tobacco: Never Alcohol Use Standard Drinks/Week Comments No 0 (1 standard drink = 0.6 oz pur e alcohol) PHQ-2 Answer Date Recorded PHQ-2 Score 0 11/13/2018 Sexually Active Control Partners Comments Never Female Sex and Gender Information Value Date Recorded Sex Assigned at Not on file Legal Sex Male 2:22 PM EDT Gender Identity Not on file Sexual Orientation Not on file documented as of this encounter Functional Status * Is the person deaf or does he/she have serious difficulty hearing? Answer Date of Assessment Author No 11/13/2018 7:36 AM EDT Suellen Chandler MA * Is the person blind or does he/she have serious difficulty seeing even when wearing glasses? Answer Date of Assessment Author No 11/13/2018 7:36 AM EDT Suellen Chandler MA * Does this person have serious difficulty walking or climbing stairs? Answer Date of Assessment Author No 11/13/2018 7:36 AM EDT Suellen Chandler MA * Does this person have difficulty dressing or bathing? Answer Date of Assessment Author No 11/13/2018 7:36 AM EDT Suellen Chandler MA * Because of a physical, mental or emotional condition, does this person have difficulty doing errands alone such as visiting a doctor's office or shopping? Answer Date of Assessment Author No 11/13/2018 7:36 AM EDT Suellen Chandler MA documented as of this encounter Mental Status * Because of a physical, mental or emotional condition, does this person have serious difficulty concentrating, remembering or making decisions? Answer Entry Date Author No 11/13/2018 7:36 AM EDT Suellen Chandler MA documented in this encounter Plan of Treatment Upcoming Encounters Date Type Department Care Team (Late st Contact Info) Description 10/13/2024 9:45 AM EDT Appointment [facility] [address] [place] [address] Fara Jhaveri MD [address] [place] [address] documented as of this encounter Goals Goal Patient Goal Type Associated Problems Recent Progress Patient-Stated? Author Blood Pressure < 140/90 Blood Pressure 134/78(2024 11:21 AM EDT) No Shaina Philip CMA Maintain a healthy diet, exercise regularly and maintain an ideal body weight General No Shaina Philip CMA documented as of this encounter Procedures Procedure Name Priority Date/Time Associated Diagnosis Comments GMED COLONOSCOPY Routine 02/23/2019 1:00 PM EST documented in this encounter Results * GMED COLONOSCOPY (02/23/2019 1:00 PM EST) 02/23/2019 1:00 PM EST Impressions [facility] - 02/23/2019 1:29 PM EST Normal mucosa in the terminal ileum. Erythema, erosions, and ulceration in the ileo-cecal valve. (Biopsy). Polyp in diverticulum (18 mm) in the proximal ascending colon. (Biopsy, Injection). Polyp in the descending colon. (Polypectomy). Polyp (10 mm) in the proximal rectum. (Polypectomy). Polyps in the rectum. (Polypectomy). Diverticulosis of the ascending colon and sigmoid colon. Internal hemorrhoids. Plan: Await pathology results Follow-up office visit at patient's convenience This section is an excerpt of the full report. us Claudia Dunn MD GI PROCEDURE ORDERABLES Edited Result - Final [facility] [address] [place] [address] documented in this encounter Visit Diagnoses Not on filedocumented in this encounter Additional Health Concerns Infection Onset Date Last Indicated Resolved Time R/O C-Diff 06/09/2019 06/09/2019 06/10/2019 6:52 AM EDT R/O C-Diff 06/14/2019 06/14/2019 06/14/2019 7:37 PM EDT COVID-19 02/05/2020 02/05/2020 03/31/2020 10:1 4 PM EST R/O C-Diff 2020 2020 2020 7:01 PM EDT documented as of this encounter Care Teams Inspector Watch Train Relationship Specialty Start Date End Date Adarhs Collins MD [facility] [place] [phone] PCP - General Family Medicine 06/11/11 Sharon Kilpatrick MD [address] [facility] [address] [place] [address] Consulting Physician Internal Medicine-Nephrology 06/18/19 Karol Burroughs, RN Fruit Bar Maker Registered Nurse 10/26/20 10/26/20 documented as of this encounter
--- OUTSIDE RECORDS SUMMARY | 2024-09-11 14:02 | XMS_ITS | Clinical Summary ---
Author Organization [facility] Address [address] [facility] [address] [place] [address] Phone Care Team Providers Care Grinder Set Up Operator Universal Name Role Phone Adarsh Collins MD Primary Care Provider [phone] Sharon Kilpatrick MD Unavailable [phone] Allergies Active Allergy Reactions Criticality Noted Date Comments Gabapentin Other (See Comments) Medium 06/10/2019 Extreme paranoia PSYCHOSIS (homicidal per pt.) Extreme paranoia Venlafaxine Other (See Comments),Anxiety,Diarr hea,Palpitations,Shortn ess Of Breath,Swelling High 03/16/2024 Cognitive impairment , memory loss Medications omeprazole (PRILOSEC) 20 mg Take 20 mg by mouth every morning (before breakfast). Active multivit-min/FA/ly copen/lutein (CENTRUM SILVER MEN ORAL) Take 1 Tablet by mouth daily. Active cloNIDine (CATAPRES) 0.1 mg Oral Tablet Take 0.1 mg by mouth as needed. 11/25/19 Active famotidine (PEPCID) 20 mg Oral Tablet Take 20 mg by mouth 2 times daily. 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 2 mL 12 5 3:09 PM EDT 06/02/19 25 Active bempedoic acid-ezetimibe (NEXLIZET) 180-10 mg Oral Tablet Take 1 Tablet by mouth daily for 180 days. 90 Tablet 2 06/27/19 25 025 Active metoprolol succinate ER (TOPROL-XL) 100 mg Oral Tablet Sustained Release 24 hrIndications:Card iomyopathy due to systemic disease (HCC),Essential hypertension,Coron oj artery disease involving rampart coronary artery of rampart heart with angina pectoris,Morbid obesity with BMI of 40.0-44.9, adult (HCC) Take 1 Tablet by mouth daily. 90 Tablet 1 07/21/19 25 Active Active Problems Patient Care Coordination No te Formatting of this note migh t be different from the original. JULI 02/02/16 as expected Problem Noted Date Diagnosed Date Meningioma 02/11/2024 Memory changes 02/11/2024 Statin myopathy 11/29/2023 Obesity, Class II, BMI 35-39.9 06/18/2022 Overview (06/18/2022): Diet and exercise Aorto-iliac atherosclerosis 06/15/2022 Overview (06/15/2022): 10/03/20 CT Abd/Pel Ascending aorta dilation 06/15/2022 Overview (06/15/2022): 06/27/21 ECHO Hyperlipidemia 01/25/2022 Overview (06/18/2022): Stable on rapatha. Sees cardiology. Major depressive disorder, recurrent episode, mi ld 01/02/2021 Overview (06/18/2022): Stable, doing well. Denies HSI, AVH, anhedonia, despair Continue same. Assessment & Plan (01/23/2024 11:17 AM EDT): Orders: ARIPiprazole (ABILIFY) 5 mg Oral Tablet; Take 1 Tablet by mouth daily. Previously failed multiple SSRIs and SNRIs, will trial Abilify to see if he has a better response to this for his depression symptoms -Continue counseling for PTSD symptoms Ventral incisional hernia without obstruction or gangrene 06/02/2020 Overview (06/18/2022): May have recurrence vs diastasis recti. No pain. Will follow up surgery. 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 Later angiogram did not show wall motion abn and EF was normal. LAD had a 40 stenosis. On BBlocker. Not on TRISTIAN I due to acute renal injury at that time. Continue medical management. Coronary artery disease invo lving rampart coronary artery of rampart heart with angina pectoris 09/30/2019 Overview (09/30/2019): Non obstructive, no ongoing symotoms BMI 33.0-33.9,adult 02/18/2019 Overview (09/30/2019): Wt Readings from Last 3 Encounters: 09/30/19 249 lb (112.9 kg) 07/28/19 234 lb 8 oz (106.4 kg) 07/07/19 234 lb (106.1 kg) Diet and exercise. Obstructive sleep apnea 12/03/2018 Overview (09/30/2019): No longer using CPAP History of colon polyps 02/06/2017 Overview (06/18/2022): Follow due 2023 Screening for HIV (human immunodeficiency virus) 02/06/2017 Overview (02/06/2017): HIV negative in 2015 Essential hypertension 05/16/2016 Overview (06/18/2022): BP Readings from Last 3 Encounters: 06/18/22 (!) 142/88 07/19/21 124/80 01/13/21 120/70 Taking meds. Not well controlled in office today. Denies chest pain and SOB, swelling, dizziness or orthostatics. Continue to monitor and follow up. Assessment & Plan (01/23/2024 11:17 AM EDT): Orders: BASIC METABOLIC PANEL; Future BASIC METABOLIC PANEL Follow-up BMP to monitor electrolytes. Hypertension at goal today continue off hydrochlorothiazide given the hypokalemia side effect GERD (gastroesophageal reflux disease) Overview (06/18/2022): Well controled no dysphagia. Denies dark stools, BPR, and hemopytsis. Stable on prilosec, continue the same. Uses pepcid at night. 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 Well controled on Breo. Rarely uses albuterol. Sees pulmonology. Anastomotic leak of intestine 06/10/2019 09/30/2019 Sepsis following intra-abdominal surgery 06/10/2019 09/30/2019 Encephalopathy 06/10/2019 09/30/2019 Ileus 06/10/2019 06/24/2019 Free intraperitoneal air 06/09/2019 Acute renal injury 06/04/2019 0 Morbid obesity with BMI of 40.0-44.9, adult 06/04/2019 06/18/2022 Metabolic acidosis 06/04/2019 0 Sessile colonic polyp 05/06/20192019 Tubular adenoma 05/06/2019 09/30/2019 Abnormal echocardiogram 12/31/2018 07/0 04/2019 Restless legs 12/03/2018 02/18/2019 Pulmonary nodule 02/17/2016 06/18/2022 Overview (02/18/2019): Stable no further surveillance needed. SOB (shortness of breath) 12/25/2015 Sinusitis 01/11/2012 02/22/2016 Stress 11/02/2011 02/22/2016 Stress at work 11/02/2011 02/22/2016 Chest pressure 11/02/2011 02/22/2016 C. difficile colitis 05/31/2010 016 Overview (09/04/2011): resulted from antibiotic use for diverticulitis, took flagyl Irritable bowel syndrome Overview (09/04/2011): diverticulitis Cardiac dysrhythmia, unspecified 02/06/2017 Overview (09/04/2011): occasional, r/t caffeine Hypovolemic shock 06/24/2019 Lactic acidosis 06/24/2019 Encounters Date Type Department Care Team Description 09/04/2024 9:22 AM EDT - 09/04/2024 11:59 PM EDT Hospital Encounter [facility] [address] [id number] Fara Jhaveri MD Discharge Disposition: Home or Self Care 07/20/2024 Refill [facility] [address] [address] Curtis Zacarias MD Medication Refill 07/15/2024 Specialty Pharmacy [facility] [address] [place] [address] Junie Gonzalez photo mask pattern generator Pharmacy Hyperlipidemia Management (Repatha) 07/09/2024 11:20 AM EDT Office Visit [facility] [address] [place] [phone] Adarsh Collins MD Rhinosinusitis (Primary Dx) 06/26/2024 8:00 AM EDT Office Visit [facility] [address] [address] Curtis Zacarias MD SOB (shortness of breath) (Primary Dx); Pure hypercholesterolemia; Dyslipidemia; Class 2 obesity due to excess calories without serious comorbidity with body mass index (BMI) of 39.0 to 39.9 in adult 06/26/2024 Telephone [facility] [address] [place] [address] Ebenezer Mota MD Other 06/21/2024 Travel from Last 3 Months Immunizations Immunization Administration Dates Next Due Hepatitis A, Adult 07/01/2020,12/31/2019 Hepatitis B, Adult 07/01/2020,02/01/2020, 020 Influenza Patient Reported 12/29/2019,12/31/2013 Tdap 06/18/2022,06/20/2011 06/19/2021 Zoster Recombinant 06/18/2022 Surgical History Surgery Date Site/Laterality Comments CYST REMOVAL ganglion , right ankle CHOLECYSTECTOMY WISDOM TOOTH EXTRACTION COLONOSCOPY 3-4 polyps removed COLONOSCOPY HERNIA REPAIR left hernia COLECTOMY 06/01/2019 N/A ROBOTIC ASCENDING COLECTOMY ; Surgeon: Andrzej Sparks MD; Location: [facility]; Service: Robotics ABDOMINAL EXPLORATION SURGERY 06/09/2019 N/A exploratory laparotomy, bowel resection, anastomotic leak; Surgeon: Andrzej Sparks MD; Location: [facility]; Service: General CT NEEDLE GUIDANCE FOR BX P INJ LOC 06/22/2020 CT NEEDLE GUIDANCE FOR BX ASP INJ LOC 06/22/[address] APPENDECTOMY VENTRAL HERNIA REPAIR 09/08/2020 N/A REPAIR INCISIONAL VENTRAL HERNIA WITH MESH LYSIS OF ADHESIONS; Surgeon: Andrzej Sparks MD; Location: [facility]; Service: General Medical devices from this surgery are in the Medical Devices section. CT GUIDED ABSCESS DRAIN 10/15/2020 CT GUIDED ABSCESS DRAIN 10/15/[address] GUIDED ABSCESS DRAIN 10/15/2020 CT GUIDED ABSCESS DRAIN 10/15/[address] Medical History Medical History Date Comments GERD (gastroesophageal reflux disease) Cardiac dysrhythmia, unspecified occasional, r/t caffeine Eczema Hypertension C. difficile colitis resulted fr om antibiotic use for diverticulitis, took flagyl//patient denies ever having this DX Chronic kidney disease Sleep apnea resolved c/ weig ht loss Family History Medical History Relation Name Comments No Known Problems Father Cancer Mother compa Anesth Problems Neg Hx Relation Name Status Comments Father Maternal Grandfather Maternal Grandmother Mother Paternal Grandfather Paternal Grandmother Social History Tobacco Use Types Packs/Day Years [...] Date Recorded PHQ-2 Total Score 0 06/18/2022 [facility] Occupat ional Health - Occupational Stress [...] on file Sexual Orientation Not on file Obstetrics History Last Filed Vital Signs Vital Sign Reading Time Taken Comments Blood Pressure 134/78 07/09/2024 11:21 AM EDT Pulse 88 07/09/2024 11:21 AM EDT Temperature 36.3 C (97.3 F) 07/09/2024 11:21 AM EDT Respiratory Rate 18 07/09/2024 11:21 AM EDT Oxygen Saturation 96% 07/09/2024 11:21 AM EDT Inhaled Oxygen Concentration - - Weight 129.3 kg (285 lb) 07/09/2024 11:21 AM EDT Height 182.9 cm (6') 06/26/2024 8:00 AM EDT Body Mass Index 38.65 06/26/2024 8:00 AM EDT Plan of Treatment Upcoming Encounters Date Type Department Care Team (Late st Contact Info) Description 10/13/2024 9:45 AM EDT Appointment [facility] [address] [phone] Fara Jhaveri MD [address] [place] [address] Health Maintenance Due Date Last Done Comments Wellness Exam Medicare 08/23/1958 Pneumococcal Vaccine 50+ (1 of 2 - PCV) 08/23/1975 Cologuard 2001 FIT 2001 Sigmoidoscopy 2001 Virtual Colonography 2001 RSV or 60+ (1 - Ris k 60-74 years 1-dose series) 2016 Zoster (2 of 2) 08/13/2022 06/18/2022 COVID-19 Vaccine (3 - 2023-2 5 season) 2023 05/21/2020, 04/21/2020 Colon Cancer Screening 02/24/2024 Colonoscopy 02/24/2024 02/23/2019, 06/13/2009 (Previously completed) Influenza Vaccine (Season Ended) 2024 12/29/2019, 12/28/2016 (Declined), 12/31/2013 DTaP/TDaP/Td (3 - Td or Tdap) 06/18/2032, 06/20/2011 Hepatitis C Screening Completed 02/06/2017 Hepatitis B Vaccine Completed 07/01/2020, 02/01/2020, 12/31/2019 Meningococcal B Vaccine Aged Out No l onger eligible based on patient's age to complete this topic Goals Goal Patient Goal Type Associated Problems Recent Progress Patient-Stated? Author Blood Pressure < 140/90 Blood Pressure 134/78(2024 11:21 AM EDT) No Shaina Philip CMA Maintain a healthy diet, exercise regularly and maintain an ideal body weight General No Shaina Philip CMA Medical Devices Implanted Type Area Medical Sales Specialist Device Identifier Shelf Expiration Date Model / Serial / Lot Mesh Bard Plug- Ex Large - [id number] Implanted:Qty: 1 on 06/15/2010 at [facility] Left: Inguinal CR BARD:DAVOL [id number] / / [id number] Patch Xl 10.8x13.7in Ovl [address] Sepra [employer]-Knit Vntrl Prt - [id number] Implanted:Qty: 1 on 09/08/2020 by Andrzej Sparks MD at [facility] N/A: Abdomen CR BARD:DAVOL 11/26/2020 [id number] / / [id number] Procedures Procedure Name Priority Date/Time Associated Diagnosis Comments MRI BRAIN W WO CONTRAST Routine 09/04/2024 10:09 AM EDT Meningioma (HCC) POCT EKG Routine 06/26/2024 8:13 AM EDT SOB (shortness of breath) GMED COLONOSCOPY Routine 02/23/2019 1:00 PM EST HCV ANTIBODY SCREEN W/ REFLEX Routine 02/06/2017 12:27 PM EST Encounter for hepatitis C screening test for low risk patient from Last 3 Months or Most Recently Relevant to Health Maintenance Results * MRI BRAIN W WO CONTRAST (09/04/2024 10:09 AM EDT) Anatomical Region Laterality Modality Head Magnetic Resonan ce 09/04/2024 10:0 9 AM EDT Impressions 09/04/2024 10:30 AM EDT Unchanged 1.1 cm meningioma. No acute intracranial abnormality - Note: Radiology results need to be interpreted within a comprehensive clinical context. If you have questions about the radiology report, please contact the office of the ordering clinician. Narrative 09/04/2024 10:30 AM EDT MRI BRAIN W WO CONTRAST 09/04/2024 10:09 AM CLINICAL HISTORY: D32.9-Benign neoplasm of meninges, unspecified (HCC)-ICD-10-CM. COMPARISON: MRI 02/03/2024. PROCEDURE COMMENTS: Multiplanar multiecho MR imaging of the brain per protocol before and following IV contrast administration. Gadolinium contrast given as recorded in Epic. FINDINGS: Redemonstrated 1.1 cm homogeneously enhancing extra-axial dural based mass overlying the left inferior frontal gyrus, similar in size to the prior. No new intracranial enhancing mass. No acute infarct, hemorrhage, or midline shift. No hydrocephalus. Enlarged retrocerebellar CSF space. Midline structures are unremarkable. Flow voids within the large intracranial vessels suggest patency. Right maxillary sinus mucus retention cyst. Orbits and mastoids are grossly unremarkable. Procedure Note Reji Sahni MD - 09/04/2024 MRI BRAIN W WO CONTRAST 09/04/2024 10:09 AM CLINICAL HISTORY: D32.9-Benign neoplasm of meninges, unspecified (HCC)-ICD-10-CM. COMPARISON: MRI 02/03/2024. PROCEDURE COMMENTS: Multiplanar multiecho MR imaging of the brain perprotocol before and following IV contrast administration. Gadolinium contrast givenas recorded in Epic. FINDINGS: Redemonstrated 1.1 cm homogeneously enhancing extra-axial dural basedmass overlying the left inferior frontal gyrus, similar in size to the prior.No new intracranial enhancing mass. No acute infarct, hemorrhage, or midline shift. No hydrocephalus.Enlarged retrocerebellar CSF space. Midline structures are unremarkable. Flow voids within the largeintracranial vessels suggest patency. Right maxillary sinus mucus retention cyst. Orbits and mastoids aregrossly unremarkable. IMPRESSION: Unchanged 1.1 cm meningioma. No acute intracranial abnormality - Note: Radiology results need to be interpreted within a comprehensiveclinical context. If you have questions about the radiology report, please contactthe office of the ordering clinician. Fara Jhaveri MD IMG MRI ORDERABLES Final Result * (ABNORMAL) POCT EKG (06/26/2024 8:13 AM EDT) 06/26/2024 8:13 AM EDT Impressions SEP OFFICE - 06/26/2024 8:13 AM EDT SR with IVCD us Curtis Zacarias MD POINT OF CARE CARDIOLOGY Final R esult Performing Organization Address [facility] de Phone Number SEP OFFICE * GMED COLONOSCOPY (02/23/2019 1:00 PM EST) 02/23/2019 1:00 PM EST Impressions [facility] - 02/23/2019 1:29 PM EST Normal [...] GI PROCEDURE ORDERABLES Edited Result - Final Performing Organization Address [facility] de Phone Number [facility] [address] [place] [address] * HEPATITIS C ANTIBODY - SCREENING (02/06/2017 12:27 PM EST) Hep C Ab Negative Negative 02/07/2017 8:19 AM EST [facility] Blood VENOUS BLOOD / Unknown Venipuncture / Unknown 02/06/2017 12:27 PM EST 02/06/2017 12:27 PM EST us Adarsh Collins MD HEMATOLOGY ORDERABLES Final Result Performing Organization Address [facility] de Phone Number [facility] [address] [place] [address] from Last 3 Months or Most Recently Relevant to Health Maintenance Insurance MEDICARE ADVANTAGE MR MEDICARE ADVANTAGE MR Advance Directives For more information, please contact: [phone] * Full Code (Latest Code Status on File) Date Activated Date Inactivated Comments 10/15/2020 7:14 AM 10/25/2020 5:56 PM * Full Code Date Activated Date Inactivated Comments 09/08/2020 2:45 PM 09/11/2020 7:03 PM * Full Code Date Activated Date Inactivated Comments 06/09/2019 4:21 PM 06/16/2019 10:26 PM * Full Code Date Activated Date Inactivated Comments 06/05/2019 10:43 PM 06/09/2019 4:20 PM * Full Code Date Activated Date Inactivated Comments 06/02/2019 12:49 PM 06/05/2019 10:43 PM Care Teams Grinder Set Up Operator Universal Relationship Specialty Start Date End Date Adarsh Collins MD [address] [place] [address] [place] [phone] PCP - General Family Medicine 06/11/11 Sharon Kilpatrick MD [address] [place] [phone] Consulting Physician Internal Medicine-Nephrology 06/18/19
--- OUTSIDE RECORDS SUMMARY | 2024-09-11 14:02 | XMS_ITS | Clinical Summary ---
Author Organization [facility] Address [address] [place] [address] Phone Care Team Providers Care Senior Boiler Operator Name Role Phone Vijay Lemons MD [phone] Conditions or Problems Problem Name Problem Code Onset Date Status Entry Date Provider Comment Standard Description Annotate MENINGIOMA , BRAIN [id number] (SNOMED CT) Active Vijay Lemons MD Intracranial meningioma Medications Medication Instructions Start Date Stop Date Generic Name NDC Provider Observed no known medication s at Medications Administered No information available. Allergies, Adverse Reactions, Alerts Observed no known allergies at Results No information available. Plan of Care No information available. Procedures No information available. Vital Signs Date Name Value Unit Description BMI (Body Mass Index) 39.33 kg/m2 Bod y Mass Index (Ratio) Height 72 [in_us] height E&M Weight Measured 290 [lb_av] weight E& M Weight Measured 290 [lb_av] weight E& M Immunizations No information available. Advance Directives No information available.
--- OUTSIDE RECORDS SUMMARY | 2024-09-11 14:02 | XMS_ITS | Encounter Summary ---
Author Organization Healthcare Address [address] [place] [phone] Care Team Providers Care Regional Vice President Life Sales Name Role Phone Pcp, No Primary Care Provider Unavailabl e Reason for Referral * Consultation (Routine) - Closed Specialty Diagnoses / Procedures Referred By Yessenia t Referred To Contact Dentist / Pain Medicine Diagnoses Obstructive sleep apnea syndrome Eileen Hansen MD [address] [facility] [address] [address] Phone: tel: fax: Patricia Yen, DDS [address] [place] [address] Phone: tel: fax: Referral ID Status Reason Start Date Expiration Date Visits Re quested Visits Authorized [id number] Closed 02/10/2024 08/11/2025 1 1 Encounter Details Date Type Department Care Team (Late st Contact Info) Description 02/10/2024 [facility] [address] [place] [address] Eileen Hansen MD [address] [facility] [address] [address] Obstructive sleep apnea syndrome (Primary Dx) Social History Tobacco Use Types Packs/Day Years Used Date Smoking Tobacco: Never Assessed Sex and Gender Information Value Date Recorded Sex Assigned at Not on file Legal Sex Male 10:25 AM EST Gender Identity Not on file Sexual Orientation Not on file documented as of this encounter Plan of Treatment Scheduled Referrals Name Type Priority Associated Diagnoses Order Schedule Ambulatory Referral to Orofacial Pain Outpatient Referral Routine Obstructive sleep apnea syndrome Expected: 02/10/2024 (Approximate), Expires: 08/09/2025 documented as of this encounter Visit Diagnoses Diagnosis Obstructive sleep apnea syndrome- Primary Obstructive sleep apnea (adult) (pediatric) documented in this encounter Care Teams Regional Vice President Life Sales Relationship Specialty Start Date End Date Pcp, Anaya [address] [place] [address] PCP - General Family Medicine 03/09/24 documented as of this encounter
--- OUTSIDE RECORDS SUMMARY | 2024-09-11 14:02 | XMS_ITS | Clinical Summary ---
Author Organization Healthcare Address [address] [place] [address] Care Team Providers Care Floodplain Manager Name Role Phone Pcp, No Primary Care Provider Unavailabl e Allergies Active Allergy Reactions Criticality Noted Date Comments Gabapentin Hallucinations,Other - please document in the comment field Medium 06/10/2019 PSYCHOSIS (homicidal per pt.) Extreme paranoia Venlafaxine Anxiety,Diarrhea,Diz zin ess,Other - please document in the comment field,Palpitations,Shor tness of breath,Swelling High 03/16/2024 Cognitive impairment , memory loss Medications cloNIDine (Catapres) 0.1 MG tablet take 1 tablet by mouth nightly at bedtime Active omeprazole (PriLOSEC) [address] capsule Take 1 capsule (20 mg) by mouth. 11/25/2023 Active metoprolol succinate XL (Toprol-XL) 100 MG 24 hr tablet Take 1 tablet (100 mg) by mouth 1 (one) time each day. 08/30/2022 Active famotidine (Pepcid) 20 MG tablet Take 1 tablet (20 mg) by mouth twice a day. 11/25/2023 Active Encounters Date Type Department Care Team Description 06/29/2024 2:45 PM EDT [facility] Room [address] [place] [id number] Randi Fields DDS Hamilton, Monica R Obstructive sleep apnea syndrome (Primary Dx) 06/29/2024 Travel 06/22/2024 Travel from Last 3 Months Family History Medical History Relation Name Comments Arthritis Father Nick Hearing loss Father Nick Cancer Mother João Relation Name Status Comments Father Nick Mother João Social History Tobacco Use Types Packs/Day Years Used Date Smoking Tobacco: Never Smokeless Tobacco: Never Tobacco Cessation:Counseling Given: Not Answered Alcohol Use Standard Drinks/Week Comments Not Currently 0 (1 standard drink = 0.6 oz pur e alcohol) Sex and Gender Information Value Date Recorded Sex Assigned at Not on file Legal Sex Male 10:25 AM EST Gender Identity Not on file Sexual Orientation Not on file Last Filed Vital Signs Vital Sign Reading Time Taken Comments Blood Pressure 167/83 06/29/2024 3:09 PM EDT Pulse 80 06/29/2024 3:09 PM EDT Temperature 36.3 C (97.3 F) 06/29/2024 3:09 PM EDT Respiratory Rate - - Oxygen Saturation 95% 06/29/2024 3:09 PM EDT Inhaled Oxygen Concentration - - Weight 132 kg (290 lb) 06/29/2024 3:09 PM EDT Height 182.9 cm (6') 06/29/2024 3:09 PM EDT Body Mass Index 39.33 06/29/2024 3:09 PM EDT Plan of Treatment Health Maintenance Due Date Last Done Comments Dental Oral Exam 1956 Dental Prophylaxis 1956 Dental X-Ray: Bitewings 1956 Dental X-Ray: Full Mouth 1956 [facility]-Depression Screening 1956 [facility]-Hepatitis C Screening 1956 [facility]-Infant/Child/Adol SDOH Screenings 1956 [facility]- SDOH Screenings 1974 [facility]-Adult SDOH Screenings 1974 CT Colonography 2001 Colonoscopy 2001 FIT-DNA 2001 FIT 2001 FOBT 2001 Sigmoidoscopy 2001 [facility]-Colorectal Cancer Screening 2001 [facility]-Pneumococcal Vaccine: 50 + Years (1 of 1 - PCV) 2006 [facility]-Zoster Vaccines (2 of 2) 08/13/2022 06/18/2022 [facility]-Medicare Annual Wellness (AWV) 06/19/2023 06/18/2022 QFF-LDUVA-70 Vaccine ( - 2023- season) 2023 05/21/2020, 04/21/2020 [facility]-Influenza Vaccine (Seaso n Ended) 2024 12/29/2019, 12/31/2013 [facility]-RSV Vaccine: 60+ Years o r (1 - 1-dose 75+ series) 08/23/2031 [facility]-DTaP,Tdap,and Td Vaccine s (3 - Td or Tdap) 06/18/2032 06/18/2022, 06/20/2011 [facility]-Hepatitis A Vaccines Aged Out 021, 12/31/2019 No longer eligible based on patient's age to complete this topic [facility]-Obesity Intervention Completed 025, 04/27/2024, 03/16/2024 HPV Vaccines Aged Out No longer eligi ble based on patient's age to complete this topic [facility]-HIB Vaccines Aged Out No longer e ligible based on patient's age to complete this topic [facility]-IPV Vaccines Aged Out No longer e ligible based on patient's age to complete this topic [facility]-Rotavirus Vaccines Aged Out No lo nger eligible based on patient's age to complete this topic Procedures Procedure Name Priority Date/Time Associated Diagnosis Comments DENTAL LAB Routine 07/06/2024 4:43 PM EDT Obstructive sleep apnea syndrome from Last 3 Months Results * DENTAL LAB (07/06/2024 4:43 PM EDT) [facility] 502.61 $ Comment:$ 502.605 OrthoApnea #[phone] Date 05-29-2024 Accepted? Yes Invoice Split? Yes us Randi Magana DDS DENTAL LAB ORDERABLES Maggie l Result from Last 3 Months Insurance [employer] Care Teams Floodplain Manager Relationship Specialty Start Date End Date Pcp, No [address] [place] [address] PCP - General Family Medicine 03/09/24
--- OUTSIDE RECORDS SUMMARY | 2024-09-11 14:02 | XMS_ITS | Encounter Summary ---
Author Organization [place] [address] Care Team Providers Care Date Night Sitter Name Role Phone Adarsh Collins MD Primary Care Provider [phone] Sharon Kilpatrick MD Unavailable [phone] Karol Burroughs RN Unavailable Unavailabl e Encounter Details Date Type Department Care Team (Late st Contact Info) Description 02/23/2019 Lab Requisition [facility] [place] [address] Claudia Dunn MD Personal history of colonic polyps; Benign neoplasm of ascending colon; Benign neoplasm of descending colon; Rectal polyp; Diverticulosis of large intestine without perforation or abscess without bleeding Social History Tobacco Use Types Packs/Day Years [...] Info) Description 10/13/2024 9:45 AM EDT Appointment [facility] [address] [place] [address] Fara Jhaveri MD [facility] [place] [address] documented as of this encounter Goals Goal Patient Goal Type Associated Problems Recent Progress Patient-Stated? Author Blood Pressure < 140/90 Blood Pressure 134/78(2024 11:21 AM EDT) No Shaina Philip CMA Maintain a healthy diet, exercise regularly and maintain an ideal body weight General No Shaina Philip CMA documented as of this encounter Procedures Procedure Name Priority Date/Time Associated Diagnosis Comments PATHOLOGY TISSUE REQUEST Routine 02/23/2019 1:00 PM EST Personal history of colonic polyps Benign neoplasm of ascending colon Benign neoplasm of descending colon Rectal polyp Diverticulosis of large intestine without perforation or abscess without bleeding documented in this encounter Results * PATHOLOGY TISSUE REQUEST (02/23/2019 1:00 PM EST) CASE REPORT Surgical Pathology Case: [id number] Authorizing Provider: Claudia Dunn MD Collected: 02/23/2019 1300 Ordering Location: [facility] Received: 02/23/2019 7793 Pathologist: Og Palomo MD Specimens: A) - Ileocecal valve B) - Large Intestine, Right/Ascending Colon C) - Large Intestine, Left/Descending Colon D) - Large Intestine, Rectum 02/24/2019 2:52 PM EST [facility] CLINICAL HISTORY Personal history of colon polyps. 02/24/2019 2:52 PM EST [facility] FINAL DIAGNOSIS A) Ileocecal valve, biopsy: - Colonic mucosa with regenerative changes and focal cryptitis. - Negative for dysplasia or granuloma. B) Colon, proximal ascending, biopsy: - Sessile serrated polyp/adenoma. C) Colon, descending, biopsy: - Benign mucosal polyp. D) Rectum, biopsy: - Tubular adenoma. - Hyperplastic polyps. 02/24/2019 2:52 PM EST [facility] at 1452 EST COMMENT 02/24/2019 2:52 PM EST [facility] GROSS DESCRIPTION Part A) Received in formalin labeled with the patient s name and ileocecal valve ulceration biopsy are 4 fragments of reyes tissue ranging from 0.2 to 0.4 cm in greatest dimension. Entirely submitted in one cassette. /ZN Part B) Received in formalin labeled with the patient s name and proximal ascending colon polyp biopsy are 2 fragments of reyes tissue ranging from 0.4 to 0.5 cm in greatest dimension. Entirely submitted in one cassette. /ZN Part C) Received in formalin labeled with the patient s name and descending colon polyp biopsy is a single fragment of reyes tissue, 0.3 cm in greatest dimension. Entirely submitted in one cassette. /ZN Part D) Received in formalin labeled with the patient s name and rectal polyps are 4 fragments of reyes tissue ranging from 0.2 to 0.3 cm in greatest dimension. Entirely submitted in one cassette. /ZN 02/24/2019 2:52 PM EST [facility] MICROSCOPIC DESCRIPTION Microscopic examination is performed and the findings corroborate the diagnosis. 02/24/2019 2:52 PM EST [facility] SPECIAL STAINS 02/24/2019 2:52 PM EST [facility] EMBEDDED IMAGES 02/24/2019 2:52 PM EST [facility] Tissue ILEOCECAL VALVE STRUCTURE / Unknown 02/23/2019 1:00 PM EST 02/23/2019 5:59 PM EST Tissue specimen (specimen) ASCENDING COLON STRUCTURE / Unknown 02/23/2019 1:00 PM EST 02/23/2019 5:59 PM EST Tissue specimen (specimen) DESCENDING COLON STRUCTURE / Unknown 02/23/2019 1:00 PM EST 02/23/2019 5:59 PM EST Tissue specimen (specimen) RECTUM STRUCTURE / Unknown 02/23/2019 1:00 PM EST 02/23/2019 5:59 PM EST Claudia Dunn MD PATHOLOGY ORDERABLES Final Resu lt Performing Organization Address City/State/[facility] Co de Phone Number [address] [address] documented in this encounter Visit Diagnoses Diagnosis Personal history of colonic polyps Benign neoplasm of ascending colon Benign neoplasm of colon Benign neoplasm of descending colon Benign neoplasm of colon Rectal polyp Anal and rectal polyp Diverticulosis of large intestine without perforation or abscess without bleeding Diverticulosis of colon (without mention of hemorrhage) documented in this encounter Additional Health Concerns Infection Onset Date Last Indicated Resolved Time R/O C-Diff 06/09/2019 06/09/2019 06/10/2019 6:52 AM EDT R/O C-Diff 06/14/2019 06/14/2019 06/14/2019 7:37 PM EDT COVID-19 02/05/2020 02/05/2020 03/31/2020 10:1 4 PM EST R/O C-Diff 2020 2020 2020 7:01 PM EDT documented as of this encounter Care Teams Date Night Sitter Relationship Specialty Start Date End Date Adarsh [place] [address] [place] [address] PCP - General Family Medicine 06/11/11 Sharon Kilpatrick MD [address] [phone] Consulting Physician Internal Medicine-Nephrology 06/18/19 Karol Burroughs, RN Spring Upholsterer Registered Nurse 10/26/20 10/26/20 documented as of this encounter
--- OUTSIDE RECORDS SUMMARY | 2024-09-11 14:02 | XMS_ITS | Encounter Summary ---
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 cook Encounter Details Date Type Department Care Team (Latest Contact Info) Description 07/15/2024 Specialty Pharmacy [facility] [address] [place] [address] Junie Gonzalez CPhT Pharmacy Hyperlipidemia Management (Repatha) Social History Tobacco Use Types Packs/Day Years [...] Date Recorded PHQ-2 Total Score 0 06/18/2022 [facility] Foss of Occupat ional Health - Occupational Stress [...] Assessment Author No 05/25/2020 3:53 PM Suellen Meade, CCMA documented as of this encounter Mental Status * Because of a physical, mental or emotional condition, does this person have serious difficulty concentrating, remembering or making decisions? Answer Entry Date Author No 05/25/2020 3:53 PM Suellen MeadeMAYRA documented in this encounter Progress Notes * Junie Gonzalez CPhT - 07/15/2024 12:40 PM EDT Specialty Pharmacy Refill Coordination Note Contacted Felix Lares today regarding refills of Repatha. Copay amount: $110.07 Spoke with patient. Patient has about 3 pens left and asked for a call back in 4 weeks. Patient informed of copay. * Dionna Napier CPhT - 07/15/2024 12:40 PM EDT Specialty Pharmacy Refill Coordination Note Contacted Felix Lares today regarding refills of Repatha 140 mg $110.07 copay 28 d/s - ins allows 28 d/s Spoke with patient. - pt requesting a mychart refill * Dionna Napier CPhT - 07/15/2024 12:40 PM EDT Specialty Pharmacy Refill Coordination Note Contacted Felix Lares today regarding refills of Repatha 140 mg $110.07 copay 28 d/s - ins allows 28 d/s Mychart. Sent MyChart message. Patient informed of copay. * Sharon Downey CPhT - 07/15/2024 12:40 PM EDT [facility] Since patient doesn't want his delivery until 09/08, will set f/u date a little further out to give him time to respond to URAC * Dionna Napier CPhT - 07/15/2024 12:40 PM EDT Specialty Pharmacy Refill Coordination Note Contacted Felix Lares today regarding refills of Repatha 140 mg $110.07 copay 28 d/s - ins allows 28 d/s Needs urac No answer, left voicemail to call [phone], option 4. * Catherine Camacho CPhT - 07/15/2024 12:40 PM EDT Specialty Pharmacy Refill Coordination Note Contacted Felix Lares today regarding URAC questions for upcoming Repatha refill. Copay amount: $110.07 No answer, left voicemail to call [phone], option 4. * Dionna Napier CPhT - 07/15/2024 12:40 PM EDT Specialty Pharmacy Refill Coordination Note Contacted Felix Lares today regarding refills of Repatha 140 mg $110.07 copay 28 d/s - ins allows 28 d/s . Needs urac for 09/08 delivery Left a vm to say we need urac questions No answer, left voicemail to call [phone], option 4. * Dionna Napier CPhT - 07/15/2024 12:40 PM EDT Specialty Pharmacy Refill Coordination Note Contacted Felix Lares today regarding refills of Repatha 140 mg $110.07 copay 28 d/s - ins allows 28 d/s Mychart . Medication to be delivered by [facility] on 09/08. Copay amount: $110.07 Spoke with patient. Patient informed of copay. * Bret Adler RPH - 07/15/2024 12:40 PM EDT [facility] - Care Plan and Refill Review Refill questions and refill history verified. Last assessment 05/05/24. No reassessment needed at this time. Bret Adler RPH Specialty Pharmacist documented in this encounter Plan of Treatment Upcoming Encounters Date Type Department Care Team (Late st Contact Info) Description 10/13/2024 9:45 AM EDT Appointment [facility] [address] [place] [address] Fara Jhaveri MD [facility] [place] [address] documented as of this encounter Goals Goal Patient Goal Type Associated Problems Recent Progress Patient-Stated? Author Blood Pressure < 140/90 Blood Pressure 134/78(2024 11:21 AM EDT) No Shaina Philip CMA Maintain a healthy diet, exercise regularly and maintain an ideal body weight General No Shaina Philip CMA documented as of this encounter Visit Diagnoses Not on filedocumented in this encounter Additional Health Concerns Assessment Noted Time A fall risk assessment has been complete d for the patient 06/18/2022 8:30 AM EDT documented as of this encounter Care Teams Member Of Parliament Relationship Specialty Start Date End Date Adarsh Collins MD [address] [place] [address] PCP - General Family Medicine 06/11/11 Sharon Kilpatrick MD [address] [place] [address] [address] [place] [address] Consulting Physician Internal Medicine-Nephrology 06/18/19 documented as of this encounter
== END 2024-09-11 23:59 | disposition home or self-care (01) ==
LOC: RAD 13:58
PROVIDERS: PCP Nurse Practitioner; Visit Provider Nurse Practitioner
DX: L97.519 Non-pressure chronic ulcer of other part of right foot with unspecified severity (principal); L03.031 Cellulitis of right toe
CPT/HCPCS: 73660

== ENCOUNTER 2024-09-23 09:19 | Outpatient (CLI) | payer MEDICARE, SELFPAY ==
--- OUTSIDE RECORDS SUMMARY | 2024-09-04 09:22 | XMS_ITS | Encounter Summary ---
Author Organization [place] [address] Care Team Providers Care Chaser Tar Name Role Phone Adarsh Collins MD Primary Care Provider [phone] Sharon Kilpatrick MD Unavailable [phone] Reason for Visit * MRI/CAT Scan (Routine) - Closed Specialty Diagnoses / Procedures Referred By Controcio t Referred To Contact Radiology Diagnoses Meningioma (HCC) Procedures MRI BRAIN W WO CONTRAST Fara Jhaveri MD [facility] [place] [address] Phone: tel: fax: Referral ID Status Reason Start Date Expiration Date Visits Re quested Visits Authorized [id number] Closed 02/05/2024 02/04/2025 1 1 Encounter Details Date Type Department Care Team (Late st Contact Info) Description 09/04/2024 9:22 AM EDT - 09/04/2024 11:59 PM EDT Hospital Encounter [facility] MRI [address] [place] [address] Fara Jhaveri MD [facility] [place] [address] Discharge Disposition: Home or Self Care Social History Tobacco Use Types Packs/Day Years Used Date Smoking Tobacco: Never Passive Smoke Exposure: Never Smokeless Tobacco: Never Alcohol Use Standard Drinks/Week Comments No 0 (1 standard drink = 0.6 oz pur e alcohol) Overall Financial Resource Strain (CARDIA) Answe r Date Recorded How hard is it for you to pa y for the very basics like food, housing, medical care, and heating? Not hard at all 10/26/2020 PHQ-2 Answer Date Recorded PHQ-2 Total Score 0 06/18/2022 [facility] - Occupational Stress Questionnaire Answer Date Recorded Do you feel stress - tense, restless, nervous, or anxious, or unable to sleep at night because your mind is troubled all the time - these days? Not at all 10/26/2020 Exercise Vital Sign Answer Date Recorde d On average, how many days pe r week do you engage in moderate to strenuous exercise (like a brisk walk)? 3 days 10/26/2020 On average, how many minutes do you engage in exercise at this level? 30 min 10/26/2020 Hunger Vital Sign Answer Date Recorded Within the past 12 months, y ou worried that your food would run out before you got the money to buy more. Never true 10/27/19 21 Within the past 12 months, t he food you bought just didn't last and you didn't have money to get more. Never true 10/26/2020 PRAPARE - Transportation Answer Date Re corded In the past 12 months, has l ack of transportation kept you from medical appointments or from getting medications? No 09/30 In the past 12 months, has l ack of transportation kept you from meetings, work, or from getting things needed for daily living? No 10/26/2020 Sexually Active Control Partners Comments Never Female Sex and Gender Information Value Date Recorded Sex Assigned at Not on file Legal Sex Male 2:22 PM EDT Gender Identity Not on file Sexual Orientation Not on file documented as of this encounter Functional Status * Is the person deaf or does he/she have serious difficulty hearing? Answer Date of Assessment Author No 05/25/2020 3:53 PM Suellen Meade CCMA * Is the person blind or does he/she have serious difficulty seeing even when wearing glasses? Answer Date of Assessment Author No 05/25/2020 3:53 PM Suellen Meade CCMA * Does this person have serious difficulty walking or climbing stairs? Answer Date of Assessment Author No 05/25/2020 3:53 PM Suellen Meade CCMA * Does this person have difficulty dressing or bathing? Answer Date of Assessment Author No 05/25/2020 3:53 PM Suellen Meade CCMA * Because of a physical, mental or emotional condition, does this person have difficulty doing errands alone such as visiting a doctor's office or shopping? Answer Date of Assessment Author No 05/25/2020 3:53 PM Suellen Meade CCMA documented as of this encounter Mental Status * Because of a physical, mental or emotional condition, does this person have serious difficulty concentrating, remembering or making decisions? Answer Entry Date Author No 05/25/2020 3:53 PM Suellen Meade CCMA documented in this encounter Medications at Time of Discharge bempedoic acid-ezetimibe (NEXLIZET) 180-10 mg Oral Tablet Take 1 Tablet by mouth daily for 180 days. 90 Tablet 2 5 12/24/19 25 cloNIDine (CATAPRES) 0.1 mg Oral Tablet Take 0.1 mg by mouth as needed. 4 evolocumab (REPATHA SURECLICK) 140 mg/mL SubQ Pen InjectorIndications :Coronary artery disease involving [place] coronary artery of [place] heart with angina pectoris,Mixed hyperlipidemia Subcutaneous (Inject under the skin) 1 mL every 14 days. 2 mL 12 09/07/2024 3:09 PM EDT 5 famotidine (PEPCID) 20 mg Oral Tablet Take 20 mg by mouth 2 times daily. 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 90 Tablet 1 5 multivit-min/FA/lyc open/lutein (CENTRUM SILVER MEN ORAL) Take 1 Tablet by mouth daily. omeprazole (PRILOSEC) 20 mg Take 20 mg by mouth every morning (before breakfast). documented as of this encounter Discharge Disposition Disposition Code Departure Means Destination Home or Self Care documented in this encounter Plan of Treatment Upcoming Encounters Date Type Department Care Team (Late st Contact Info) Description 10/08/2024 10:30 AM EDT Office Visit [facility] [address] [place] [facility] [place] [address] Gabino Chapman MD [address] [place] [address] 09/21/2025 9:45 AM EDT Appointment [facility] [address] [place], [place] [id number] Fara Jhaveri MD [address], [place] [id number] documented as of this encounter Goals Goal Patient Goal Type Associated Problems Recent Progress Patient-Stated? Author Blood Pressure < 140/90 Blood Pressure 134/78(2024 11:21 AM EDT) No Shaina Philip CMA Maintain a healthy diet, exercise regularly and maintain an ideal body weight General No Shaina Philip CMA documented as of this encounter Procedures Procedure Name Priority Date/Time Associated Diagnosis Comments MRI BRAIN W WO CONTRAST Routine 09/04/2024 10:09 AM EDT Meningioma (HCC) documented in this encounter Visit Diagnoses Not on filedocumented in this encounter Administered Medications Inactive Administered Medications - up to 1 most recent administrations Medication Order MAR Action Action Date Dose Rate Site gadoterate meglumine (DOTAREM) prefilled syringe 20 mL 20 mL, Intravenous, ONCE PRN, 1 dose, Starting on Sat09/04/24 at 0926, Until Sat09/04/24 at 1010, Radiology Procedure, VESICANT , MRI (Contrasts) Given 09/04/2024 10:10 AM EDT 20 mL Left Arm documented in this encounter Orders Medications Ordered That Cruz ht Not Have Been Administered Count Last Ordered Date First Ordered Date gadoterate meglumine (DOTARE M) prefilled syringe 20 mL 1 09/04/2024 documented in this encounter Additional Health Concerns Assessment Noted Time A fall risk assessment has been complete d for the patient 06/18/2022 8:30 AM EDT documented as of this encounter Care Teams Chaser Tar Relationship Specialty Start Date End Date Adarsh Collins MD [address] [place] [phone] PCP - General Family Medicine 06/11/11 Sharon Kilpatrick MD [address] [facility] [address] [place] [address] Consulting Physician Internal Medicine-Nephrology 06/18/19 documented as of this encounter
--- OUTSIDE RECORDS SUMMARY | 2024-09-25 09:22 | XMS_ITS | Clinical Summary ---
Author Organization [facility] Address [address] [place] [address] Phone Care Team Providers Care Yardage Caller Name Role Phone Vijay Lemons MD [phone] Conditions or Problems Problem Name Problem Code Onset Date Status Entry Date Provider Comment Standard Description Annotate MENINGIOMA , BRAIN [id number] (SNOMED CT) Active Vijay Lemons MD Intracranial [...]
--- OUTSIDE RECORDS SUMMARY | 2024-09-25 09:23 | XMS_ITS | Encounter Summary ---
Author Organization Healthcare Address [address] [place] [id number] Care Team Providers Care Wire Rope Sales Representative Name Role Phone Pcp, No Primary Care Provider Unavailabl e Reason for Referral * Consultation (Routine) - Closed Specialty Diagnoses / Procedures Referred By Ysesenia t Referred To Contact Dentist / Pain Medicine Diagnoses Obstructive sleep apnea syndrome Eileen Hansen MD [address] [facility] [address] [place] [address] Phone: tel: fax: Patricia Yen, DDS [address] [place] [address] Phone: tel: fax: Referral ID Status Reason Start Date Expiration Date Visits Re quested Visits Authorized [id number] Closed 02/10/2024 08/11/2025 1 1 Encounter Details Date Type Department Care Team (Late st Contact Info) Description 02/10/2024 Community [facility] [address] [place] [address] Eileen Hansen MD [address] [facility] [address] [place] [address] Obstructive [...] (pediatric) documented in this encounter Care Teams Wire Rope Sales Representative Relationship Specialty Start Date End Date Pcp, Anaya [address] [place] [address] PCP - General Family Medicine 03/09/24 documented as of this encounter
--- OUTSIDE RECORDS SUMMARY | 2024-09-25 09:23 | XMS_ITS | Encounter Summary ---
Author Organization [place] [address] Care Team Providers Care Eyelet Punch Operator Name Role Phone Adarsh Collins MD Primary Care Provider [phone] Sharon Kilpatrick MD Unavailable [phone] Karol Burroughs RN Unavailable Unavailabl e Encounter Details Date Type Department Care Team (Late st Contact Info) Description 02/23/2019 Lab Requisition [facility] [place] [address] Claudia Dunn MD Personal history of colonic [...] AM EDT Office Visit [facility] [address] [place] [address] Gabino Chapman MD [address] [place] [address] 09/21/2025 9:45 AM EDT Appointment [facility] MRI [address] [place] [address] Fara Jhaveri MD [address] [place] [address] documented as of this encounter Goals Goal Patient Goal Type Associated Problems Recent Progress Patient-Stated? Author Blood Pressure < 140/90 Blood Pressure 134/78(2024 11:21 AM EDT) No Tamera, Shaina, FLATWORK FINISHER HAND Maintain a healthy diet, exercise regularly and [...] PM EST) CASE REPORT Surgical Pathology Case: [id number] Authorizing Provider: Claudia Dunn MD Collected: 02/23/2019 1300 Ordering Location: [facility] Received: 02/23/2019 8524 Pathologist: Og Palomo MD Specimens: A) - Ileocecal valve B) - Large Intestine, Right/Ascending Colon C) - Large Intestine, Left/Descending Colon D) - Large Intestine, Rectum 02/24/2019 2:52 PM EST [facility] CLINICAL HISTORY Personal history of colon polyps. 02/24/2019 2:52 PM EST [facility] FINAL DIAGNOSIS A) Ileocecal valve, biopsy: - Colonic mucosa with regenerative changes and focal cryptitis. - Negative for dysplasia or granuloma. B) Colon, proximal ascending, biopsy: - Sessile serrated polyp/adenoma. C) Colon, descending, biopsy: - Benign mucosal polyp. D) Rectum, biopsy: - Tubular adenoma. - Hyperplastic polyps. 02/24/2019 2:52 PM EST [facility] at 1452 EST COMMENT 02/24/2019 2:52 PM EST [facility] GROSS DESCRIPTION Part A) Received in [...] one cassette. /ZN 02/24/2019 2:52 PM EST [facility] MICROSCOPIC DESCRIPTION Microscopic examination is performed and the findings corroborate the diagnosis. 02/24/2019 2:52 PM EST [facility] SPECIAL STAINS 02/24/2019 2:52 PM EST [facility] EMBEDDED IMAGES 02/24/2019 2:52 PM EST [facility] Tissue ILEOCECAL VALVE STRUCTURE / Unknown [...] Dunn MD PATHOLOGY [place] [address] documented in this encounter Visit Diagnoses Diagnosis [...] documented as of this encounter Care Teams Eyelet Punch Operator Relationship Specialty Start Date End Date Adarsh Collins MD [address] [facility] [place] [phone] PCP - General Family Medicine 06/11/11 Sharon Kilpatrick MD [address] [place] [phone] Consulting Physician Internal Medicine-Nephrology 06/18/19 Karol Burroughs, RN Landscape Architecture Teacher Registered Nurse 10/26/20 10/26/20 documented as of this encounter
--- OUTSIDE RECORDS SUMMARY | 2024-09-25 09:23 | XMS_ITS | Clinical Summary ---
Author Organization 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 Coronary artery disease invo lving bishop paiute coronary artery of bishop paiute heart with angina pectoris 09/30/2019 Overview (09/30/2019): [...] Encounters Date Type Department Care Team Description 09/18/2024 Telephone [facility] [address] [facility] [place] [address] Gilberto Navarrete MD Other (Email - website) 09/04/2024 9:22 AM EDT - 09/04/2024 11:59 PM EDT Hospital Encounter [facility] [address] [place] [address] Fara Jhaveri MD Discharge Disposition: Home or Self Care 07/20/2024 Refill [facility] [address] [address] Curtis Zacarias MD Medication Refill 07/15/2024 Specialty Pharmacy [facility] [address] [place] [address] Junie Gonzalez CPhT Pharmacy Hyperlipidemia Management (Repatha) 07/09/2024 11:20 AM EDT Office Visit [facility] [address] [place] [address] Adarsh Collins MD Rhinosinusitis (Primary Dx) 06/26/2024 8:00 AM EDT Office Visit [facility] [address] [address] Curtis Zacarias MD SOB (shortness of breath) (Primary Dx); Pure hypercholesterolemia; Dyslipidemia; Class 2 obesity due to excess calories without serious comorbidity with body mass index (BMI) of 39.0 to 39.9 in adult 06/26/2024 Telephone [facility] [address] [place] [address] Carolyn Mota MD Other from Last 3 Months Immunizations Immunization Administration [...] Comments No Known Problems Father Cancer Mother utrerincarolyn Anesth Problems Neg Hx Relation Name Status [...] Date Recorded PHQ-2 Total Score 0 06/18/2022 [facility] Occupat ional Health - Occupational [...] Description 10/08/2024 10:30 AM EDT Office Visit [facility] [address] [place] [address] Gabino Chapman MD [address] [place] [address] 09/21/2025 9:45 AM EDT Appointment [facility] [address] [place], [place] [id number] Fara Jhaveri MD [address] [place] [address] Health Maintenance Due Date Last [...] Philip CMA Medical Devices Implanted Type Area Training Facilitator Device Identifier Shelf Expiration Date Model / Serial / Lot Mesh Bard Plug- Ex Large - [id number] Implanted:Qty: 1 on 06/15/2010 at [facility] Left: Inguinal CR BARD:SALOMON [id number] / / [id number] Patch Xl 10.8x13.7in Ovl [address] [employer]-Knit Vntrl Prt - [id number] Implanted:Qty: 1 on 09/08/2020 by Andrzej Sparks MD at [facility] N/A: Abdomen CR BARD:SALOMON 11/26/2020 [id number] / / [id number] Procedures Procedure Name Priority Date/Time Associated Diagnosis [...] 06/26/2024 8:13 AM EDT SR with IVCD Curtis Zacarias MD POINT OF CARE CARDIOLOGY Final R esult Performing Organization Address [facility]/ZIP Co de Phone Number [facility] OFFICE * GMED COLONOSCOPY (02/23/2019 1:00 PM EST) 02/23/2019 1:00 PM EST Impressions [facility] - 02/23/2019 1:29 PM EST Normal [...] is an excerpt of the full report. Result [facility] Claudia Dunn MD GI PROCEDURE ORDERABLES Edited Result - Final [facility] [address] [place] [address] * HEPATITIS C ANTIBODY - SCREENING (02/06/2017 12:27 PM EST) Hep C Ab Negative Negative 02/07/2017 8:19 AM EST [facility] Blood VENOUS BLOOD / Unknown Venipuncture / Unknown 02/06/2017 12:27 PM EST 02/06/2017 12:27 PM EST Adarsh Collins MD HEMATOLOGY ORDERABLES Final Result [facility] [address] [place] [address] from Last 3 Months or Most Recently Relevant to Health Maintenance Insurance MEDICARE ADVANTAGE MR MEDICARE ADVANTAGE MR MEDICARE ADVANTAGE MR Advance Directives For more information, please contact: [phone] * Full Code (Latest Code Status on [...] 12:49 PM 06/05/2019 10:43 PM Care Teams Hat Measurer Relationship Specialty Start Date End Date [place] [address] [place] [address] PCP - General Family Medicine 06/11/11 Sharon Kilpatrick MD [address] [facility] [address] [place] [address] Consulting Physician Internal Medicine-Nephrology 06/18/19
--- OUTSIDE RECORDS SUMMARY | 2024-09-25 09:23 | XMS_ITS | Encounter Summary ---
Author Organization [facility] Address [address] [place] [address] Care Team Providers Care Gun Fertilizer Name Role Phone Adarsh Collins MD Primary Care Provider [phone] Sharon Kilpatrick MD Unavailable [phone] Reason for Visit * Reason Onset Date Comments Other 09/18/2024 Email - website Encounter Details Date Type Department Care Team (Late st Contact Info) Description 09/18/2024 Telephone [facility] [address] [place] [address] Gilberto Navarrete MD [address] [place] [address] Other (Email - website) Social History Tobacco Use Types Packs/Day Years [...] Date Recorded PHQ-2 Total Score 0 06/18/2022 [facility] - Occupational Stress [...] of Assessment Author No 05/25/2020 3:53 PM Carmel Meade CCMA * Is the person blind or does he/she have serious difficulty seeing even when wearing glasses? Answer Date of Assessment Author No 05/25/2020 3:53 PM Carmel Meade CCMA * Does this person have serious difficulty walking or climbing stairs? Answer Date of Assessment Author No 05/25/2020 3:53 PM Carmel Meade CCMA * Does this person have difficulty dressing or bathing? Answer Date of Assessment Author No 05/25/2020 3:53 PM Carmel Meade CCMA * Because of a physical, mental or emotional condition, does this person have difficulty doing errands alone such as visiting a doctor's office or shopping? Answer Date of Assessment Author No 05/25/2020 3:53 PM Carmel Meade CCMA documented as of this encounter Mental Status * Because of a physical, mental or emotional condition, does this person have serious difficulty concentrating, remembering or making decisions? Answer Entry Date Author No 05/25/2020 3:53 PM Carmel Meade CCMA documented in this encounter Miscellaneous Notes * Telephone Encounter - Larisa Duran, Clerical Staff - 09/18/2024 3:16 PM EDT Received email from website - Called patient and lm on documented in this encounter Plan of Treatment Upcoming Encounters Date Type Department Care Team (Late st Contact Info) Description 10/08/2024 10:30 AM EDT Office Visit [facility] [address] [place] [address] Gabino Chapman MD [address] [place] [address] 09/21/2025 9:45 AM EDT Appointment [facility] [address] [place] [address] Fara Jhaveri MD [address] [place] [address] documented as of this encounter Goals Goal Patient Goal Type Associated Problems Recent Progress Patient-Stated? Author Blood Pressure < 140/90 Blood Pressure 134/78(2024 11:21 AM EDT) Shaina Stone CMA Maintain a healthy diet, exercise regularly and maintain an ideal body weight General No Shaina Philip CMA documented as of this encounter Visit Diagnoses Not on filedocumented in this encounter Additional Health Concerns Assessment Noted Time A fall risk assessment has been complete d for the patient 06/18/2022 8:30 AM EDT documented as of this encounter Care Teams Gun Fertilizer Relationship Specialty Start Date End Date Adarsh Collins MD [address] [place] [address] [place] [id number] PCP - General Family Medicine 06/11/11 Sharon Kilpatrick MD [address] [facility] [address] [place] [address] Consulting Physician Internal Medicine-Nephrology 06/18/19 documented as of this encounter
--- OUTSIDE RECORDS SUMMARY | 2024-09-25 09:23 | XMS_ITS | Clinical Summary ---
Author Organization Healthcare Address [address] [place] [address] Care Team Providers Care Cross Enterprise Integrator Name Role Phone Pcp, No Primary Care [...] Description 06/29/2024 2:45 PM EDT Office Visit [facility] [address] [place] [address] Randi Fields DDS [place], Monica R Obstructive sleep apnea syndrome (Primary Dx) 06/29/2024 Travel from Last 3 Months Family History [...] 06/18/2022 [facility]-Medicare Annual Wellness (AWV) 06/19/2023 06/18/2022 [id number] Vaccine ( - season) 2023 05/21/2020, 04/21/2020 [facility]-Influenza Vaccine (Seaso [...] 3 Months Insurance ANTHEM MEDICARE Care Teams Cross Enterprise Integrator Relationship Specialty Start Date End Date Pcp, No [address] [place] [address] PCP - General Family Medicine 03/09/24
--- OUTSIDE RECORDS SUMMARY | 2024-09-25 09:23 | XMS_ITS | Encounter Summary ---
Author Organization [place] [address] Care Team Providers Care Operations Developer Name Role Phone Adarsh Collins MD Primary Care Provider [phone] Sharon Kilpatrick MD Unavailable [phone] Karol Burroughs RN Unavailable Unavailabl e Encounter Details Date Type Department Care Team (Late st Contact Info) Description 02/23/2019 Orders Only [facility] [address] [phone] Claudia Dunn MD Social History Tobacco Use [...] AM EDT Office Visit [facility] [address] [place] [address] Gabino Chapman MD [address] [place] [address] 09/21/2025 9:45 AM EDT Appointment [facility] [address] [place] [address] Fara Jhaveri MD [address] [place] [address] documented as of this encounter Goals Goal Patient Goal Type Associated Problems Recent Progress Patient-Stated? Author Blood Pressure < 140/90 Blood Pressure 134/78(2024 11:21 AM EDT) No Shaina Philip CMA Maintain a healthy diet, exercise regularly and maintain an ideal body weight General No Shaina Philip CMA documented as of this encounter Procedures Procedure Name Priority Date/Time Associated Diagnosis Comments [facility] COLONOSCOPY Routine 02/23/2019 1:00 PM EST documented in this encounter Results * ED COLONOSCOPY (02/23/2019 1:00 PM EST) 02/23/2019 1:00 PM EST Impressions [facility] - 02/23/2019 1:29 PM EST Normal [...] is an excerpt of the full report. Claudia Dunn MD GI PROCEDURE ORDERABLES Edited Result - Final [facility] [address] [place] [address] documented in this encounter Visit Diagnoses Not on filedocumented in this encounter Additional Health Concerns Infection Onset Date Last Indicated Resolved Time R/O C-Diff 06/09/2019 06/09/2019 06/10/2019 6:52 AM EDT R/O C-Diff 06/14/2019 06/14/2019 06/14/2019 7:37 PM EDT COVID-19 02/05/2020 02/05/2020 03/31/2020 10:1 4 PM EST R/O C-Diff 2020 2020 2020 7:01 PM EDT documented as of this encounter Care Teams Operations Developer Relationship Specialty Start Date End Date Adarsh Collins MD [address] [place] [phone] PCP - General Family Medicine 06/11/11 Sharon Kilpatrick MD [address] [facility] [address] [place] [address] Consulting Physician Internal Medicine-Nephrology 06/18/19 Karol Burroughs, RN Slot Machine Mechanic Registered Nurse 10/26/20 10/26/20 documented as of this encounter
--- OUTSIDE RECORDS SUMMARY | 2024-09-25 09:23 | XMS_ITS | Encounter Summary ---
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 Sent MyChart message. Patient informed of copay. * Sharon Downey CPhT - 07/15/2024 12:40 PM EDT [facility] Since patient doesn't want his [...] urac No answer, left voicemail to call [phone], option 4. * Catherine Camacho CPhT - 07/15/2024 12:40 PM EDT Specialty Pharmacy Refill Coordination Note Contacted Felix Lares today regarding URAC questions for upcoming Repatha refill. Copay amount: $110.07 No answer, left voicemail to call [phone], option 4. * Dionna Napier CPhT - 07/15/2024 12:40 PM EDT Specialty Pharmacy Refill Coordination Note Contacted Felix Lares today regarding refills of Repatha 140 mg $110.07 copay 28 d/s - ins allows 28 d/s . Needs urac for 09/08 delivery Left a vm to say we need urac questions No answer, left voicemail to call [phone], option 4. * Dionna Napier CPhT - 07/15/2024 12:40 PM EDT Specialty Pharmacy Refill Coordination Note Contacted Felix Lares today regarding refills of Repatha 140 mg $110.07 copay 28 d/s - ins allows 28 d/s Mychart . Medication to be delivered by [facility] on 09/08. Copay amount: $110.07 Spoke with patient. Patient informed of copay. * Bret Adler RPH - 07/15/2024 12:40 PM EDT [facility] - Care Plan and Refill Review Refill questions and refill history verified. Last assessment 05/05/24. No reassessment needed at this time. Bret Adler RPH Specialty Pharmacist documented in this encounter Plan of Treatment Upcoming Encounters Date Type Department Care Team (Late st Contact Info) Description 10/08/2024 10:30 AM EDT Office Visit [facility] [address] [facility] [place] [address] Gabino Chapman MD [address] [place] [address] 09/21/2025 9:45 AM EDT Appointment [facility] [address] [facility] [place], [place] [id number] Fara Jhaveri MD [address] [place] [address] documented as of this encounter [...] documented as of this encounter Care Teams Nurse Wound Relationship Specialty Start Date End Date Adarsh Collins MD [address] [place] [address] PCP - General Family Medicine 06/11/11 Sharon Kilpatrick MD [address] [address] Consulting Physician Internal Medicine-Nephrology 06/18/19 documented as of this encounter
== END 2024-09-23 23:59 | disposition home or self-care (01) ==
LOC: LAB.DROPOF 09-25 09:19
PROVIDERS: PCP Podiatrist; Visit Provider Podiatrist
DX: B35.1 Tinea unguium (principal)
CPT/HCPCS: 87220

== ENCOUNTER 2025-03-17 10:41 | Outpatient (CLI) | payer MEDICARE, SELFPAY ==
--- OUTSIDE RECORDS SUMMARY | 2025-02-12 08:20 | XMS_ITS | Encounter Summary ---
Author Organization [place] [address] Care Team Providers Care Page Makeup System Operator Name Role Phone Adarsh Collins MD Primary Care Provider [phone] Sharon Kilpatrick MD Unavailable [phone] Reason for Visit * Reason Comments Labs Only Encounter Details Date Type Department Care Team (Latest Contact Info) Description 02/12/2025 8:20 AM EST Clinical Support [facility] [place] [address] [place] [phone] Jace Chandler MA Pure hypercholesterolemia ; Dyslipidemia; Mixed hyperlipidemia; Prostate cancer screening Social History Tobacco Use Types Packs/Day Years [...] Date Recorded PHQ-2 Total Score 0 06/18/2022 [facility] [place] of Occupat ional Health - Occupational Stress [...] of Assessment Author No 05/25/2020 3:53 PM Karol Meade CCMA * Does this person have difficulty dressing or bathing? Answer Date of Assessment Author No 05/25/2020 3:53 PM Suellen Meade CCMA * Because of a physical, mental or emotional condition, does this person have difficulty doing errands alone such as visiting a doctor's office or shopping? Answer Date of Assessment Author No 05/25/2020 3:53 PM EST Suellen Rodriguez CCMA documented as of this encounter Mental Status * Because of a physical, mental or emotional condition, does this person have serious difficulty concentrating, remembering or making decisions? Answer Entry Date Author No 05/25/2020 3:53 PM EST Suellen Rodriguez CCMA documented in this encounter Plan of Treatment Upcoming Encounters Date Type Department Care Team (Late st Contact Info) Description 03/18/2025 9:00 AM EST Appointment [facility] [place] [place] [address] Lucille Martin, EXECUTIVE ADMINISTRATIVE ASSISTANT [address] [facility] [address] [place] [address] 09/21/2025 9:45 AM EDT Appointment [facility] [address] [place] [address] Fara Jhaveri MD [address] [place] [address] documented as of this encounter Goals Goal Patient Goal Type Associated Problems Recent Progress Patient-Stated? Author Blood Pressure < 140/90 Blood Pressure 171/92(2024 11:15 AM EDT) No Shaina Philip CMA Maintain a healthy diet, exercise regularly and maintain an ideal body weight General No Shaina Philip CMA documented as of this encounter Procedures Procedure Name Priority Date/Time Associated Diagnosis Comments BILIRUBIN DIRECT Routine 02/12/2025 8:19 AM EST Pure hypercholesterolemia LIPID PANEL REFLEX Routine 02/12/2025 8: 19 AM EST Mixed hyperlipidemia PROSTATE SPECIFIC ANTIGEN (SCREENING) Routine 02/12/2025 8:19 AM EST Prostate cancer screening COMPREHENSIVE METABOLIC PANEL Routine 02/12/2025 8:19 AM EST Mixed hyperlipidemia documented in this encounter Results * BILIRUBIN DIRECT (02/12/2025 8:19 AM EST) Bili Direct <0.2 0.0 - 0.3 mg/dL 02/12/2025 6:02 PM EST [facility] Blood VENOUS BLOOD / Unknown Venipuncture / Unknown 02/12/2025 8:19 AM EST 02/12/2025 8:19 AM EST Curtis Zacarias MD CHEMISTRY ORDERABLES Final Resul t [facility] [address] [facility] , [place] [address] * (ABNORMAL) LIPID PANEL REFLEX (02/12/2025 8:19 AM EST) Cholesterol 149 <200 mg/dL 02/12/2025 6:02 PM EST [facility] Comment: < 200 Desirable 200 - 239 Borderline High >= 240 High Triglyceride 231(H) <150 mg/dL 02/12/2025 6:02 PM EST [facility] Comment: < 150 Normal 150 - 199 Borderline High 200 - 499 High >= 500 Very High HDL 38(L) >=40 mg/dL 02/12/2025 6:02 PM EST [facility] Comment: > 60 Optimal 40 - 60 Acceptable < 40 Low LDL Calculated 73 <100 mg/dL 02/12/2025 6:02 PM EST [facility] Comment: < 100 Optimal 100 - 129 Near or above optimal 130 - 159 Borderline High 160 - 189 High >= 190 Very High The National Institutes of Health (NIH) equation is used for all lipid panels that report calculated LDL (LDL-C). Non-HDL-C Calculated 111 <=129 mg/dL 02/12/2025 6:02 PM EST [facility] Comment: <130 Desirable 130-159 Above Desirable 160-189 Borderline High 190-219 High >= 220 Very High Fasting Specimen? Yes None 025 6:02 PM EST [facility] Blood VENOUS BLOOD / Unknown Venipuncture / Unknown 02/12/2025 8:19 AM EST 02/12/2025 8:19 AM EST Adarsh Collins MD CHEMISTRY ORDERABLES Final Result Performing Organization Address [facility] Co de Phone Number [facility] [employer] , [place] [id number] * PROSTATE SPECIFIC ANTIGEN (SCREENING) (02/12/2025 8:19 AM EST) Total Psa 3.10 <=4.00 ng/mL 02/12/2025 6:14 PM EST [facility] Blood VENOUS BLOOD / Unknown Venipuncture / Unknown 02/12/2025 8:19 AM EST 02/12/2025 8:19 AM EST Narrative [facility], [facility] - 02/12/2025 6:14 PM EST The Patricia Ele[employer]ys total PSA electrochemiluminescence (ECLIA) immunoassay is used. Results obtained with different test methods or kits cannot be used interchangeably. The Patricia method is approved for use as an aid in the detection of prostate cancer when used in conjunction with a digital rectal exam in individuals with a prostate aged 50 years or older. The assay is also indicated for the serial measurement of PSA to aid in the prognosis and management of prostate cancer patients. Elevated tPSA concentrations can only suggest the presence of prostate cancer until biopsy is performed. Levels may also be elevated in benign prostatic hyperplasia or inflammatory conditions of the prostate. Adarsh Collins MD CHEMISTRY ORDERABLES Final Result Performing Organization Address [facility] de Phone Number [facility] [employer] , [place] [address] * (ABNORMAL) COMPREHENSIVE METABOLIC PANEL (02/12/2025 8:19 AM EST) Sodium 142 136 - 145 mmol/L 02/12/2025 6:02 PM EST [facility] Potassium 4.5 3.5 - 5.0 mmol/L 02/12/2025 6:02 PM EST [facility] Chloride 104 98 - 107 mmol/L 02/12/2025 6:02 PM EST [facility] Total CO2 27 22 - 29 mmol/L 02/12/2025 6:02 PM EST [facility] Anion Gap 11 7 - 16 mmol/L 02/12/2025 6:02 PM EST [facility] Calcium 9.9 8.8 - 10.4 mg/dL 02/12/2025 6:02 PM EST [facility] Glucose Lvl 112(H) 70 - 99 mg/dL 02/12/2025 6:02 PM EST [facility] BUN 23 8 - 23 mg/dL 02/12/2025 6:02 PM EST [facility] Creatinine 0.98 0.67 - 1.30 mg/dL 02/12/2025 6:02 PM EST [facility] Albumin 4.4 3.2 - 4.6 gm/dL 02/12/2025 6:02 PM EST [facility] Total Protein 7.0 6.4 - 8.3 gm/dL 02/12/2025 6:02 PM EST [facility] Bili Total 0.5 0.2 - 1.4 mg/dL 02/12/2025 6:02 PM EST [facility] ALT 31 <=41 U/L 02/12/2025 6:02 PM EST [facility] AST 22 <=40 U/L 02/12/2025 6:02 PM EST [facility] Alk Phos 80 40 - 129 U/L 02/12/2025 6:02 PM EST [facility] eGFR (CKD-EPIcr 2020) 84 >=60 mL/min/1.7 3 m2 02/12/2025 6:02 PM EST [facility] Comment:Estimated GFR was ca lculated using the CKD-EPIcr (2020) equation refit without race. The equation is recommended by the National Kidney Foundation - [place] [employer] of Nephrology Task Force. Blood VENOUS BLOOD / Unknown Venipuncture / Unknown 02/12/2025 8:19 AM EST 02/12/2025 8:19 AM EST us Adarsh Collins MD CHEMISTRY ORDERABLES Final Result [facility] [address] [facility] , [place] [address] documented in this encounter Visit Diagnoses Diagnosis Pure hypercholesterolemia Dyslipidemia Other and unspecified hyperlipidemia Mixed hyperlipidemia Prostate cancer screening Special screening for malignant neoplasm of prostate documented in this encounter Additional Health Concerns Assessment Noted Time A fall risk assessment has been complete d for the patient 06/18/2022 8:30 AM EDT documented as of this encounter Care Teams Page Makeup System Operator Relationship Specialty Start Date End Date Adarsh Collins MD [address] [employer] [facility] [place] [address] PCP - General Family Medicine 06/11/11 Sharon Kilpatrick MD [address] [facility] [address] [place] [address] Consulting Physician Internal Medicine-Nephrology 06/18/19 documented as of this encounter
[2025-03-17 15:48] LABS: Hematocrit 42.6 % (42.0-52.0); Hemoglobin 14.3 g/dL (14.1-18.0); Immature Granulocytes % 0.3 %; Mean Corpuscular HGB Conc 33.6 g/dL (31.8-35.4); Mean Corpuscular Hemoglobin 30.2 pg (27.0-31.2); Mean Corpuscular Volume 89.9 fl (80-94); Nucleated Red Blood Cells % 0 %; Platelet Count 227 K/mm3 (142-424); Red Blood Count 4.74 M/mm3 (4.60-6.20); Red Cell Distribution Width-SD 44.1 fL; White Blood Count 8.0 K/mm3 (4.8-10.8)
[2025-03-17 16:22] LABS: Alanine Aminotransferase 30 U/L (12-78); Albumin Level 4.1 g/dl (3.5-5.0); Albumin/Globulin Ratio 1.6 (1.1-1.8); Alkaline Phosphatase 86 U/L (38-126); Anion Gap 11.4 mEq/L (5-15); Aspartate Amino Transferase 23 U/L (17-59); Bilirubin,Total 1.1 mg/dl (0.2-1.3); Blood Urea Nitrogen 13 mg/dl (9-20); Calcium 9.3 mg/dl (8.4-10.2); Carbon Dioxide 26 mmol/L (22.0-30.0); Chloride 103 mmol/L (98-107); Creatinine,Serum 1.10 mg/dl (0.66-1.25); Estimated Glomerular Filt Rate 67 ml/min (>60); GFR (African American) 81 ML/MIN (>60); Globulin 2.5 g/dL (1.3-3.2); Glucose 130 mg/dl (74-100); Potassium 4.4 mmoL/L (3.5-5.1); Sodium 136 mmol/L (136-145); Total Protein,Serum 6.6 g/dl (6.3-8.2)
--- OUTSIDE RECORDS SUMMARY | 2025-03-17 20:51 | XMS_ITS | Clinical Summary ---
Author Organization [facility] [place] Address [address] [place] [address] Phone Care Team Providers Care Cement Worker Name Role Phone Adarsh Collins MD Primary Care Provider [phone] Sharon Kilpatrick MD Unavailable Allergies Active Allergy Reactions Criticality Noted Date Comments Gabapentin Other (See Comments) Medium 06/10/2019 Extreme paranoia PSYCHOSIS (homicidal per pt.) Extreme paranoia Venlafaxine Other (See Comments),Anxiety,Diarr hea,Palpitations,Shortn ess Of Breath,Swelling High 03/16/2024 Cognitive impairment , memory loss Medications omeprazole (PRILOSEC) 20 mg Take 20 mg by mouth every morning (before breakfast). Active famotidine (PEPCID) 20 mg Oral Tablet Take 20 mg by mouth 2 times daily. 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 90 Tablet 1 07/21/19 25 Active valsartan (DIOVAN) 40 mg Oral TabletIndications: Essential hypertension Take 1 Tablet by mouth daily. 90 Tablet 3 10/30/19 25 Active cloNIDine (CATAPRES) 0.1 mg Oral Tablet Take 1 Tablet by mouth as needed. 90 Tablet 3 10/30/19 25 Active Additional Information Patient not taking.Reason: Therapy Completed, Reported on 12/01/2024 sod sulf-pot chloride-mag sulf (SUTAB) 1.479-0.188- 0.225 gram Oral TabletIndications: Adenomatous polyp of colon, unspecified part of colon,Diarrhea, unspecified type,Gastroesophag eal reflux disease without esophagitis,Esopha geal dysphagia Take 12 Tablets by mouth Preprocedure for up to 1 dose. Take 1 kit (12 tablets twice) per physician instructions. 24 Tablet 11/04/19 25 Active Additional Information Patient not taking.Reason: Therapy Completed, Reported on 12/01/2024 colestipoL (COLESTID) 1 gram Oral Tablet Take 1 Tablet by mouth daily. 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 2 mL 8 11/22/19 25 Active rOPINIRole (REQUIP) 0.5 mg Oral Tablet TAKE 1/2 TABLET BY MOUTH AT BEDTIME FOR 6 DAYS. THEN INCREASE TO 1 TABLET AT BEDTIME FOR 7 DAYS. THEN INCREASE TO 2 TABLETS AT BEDTIME THEREAFTER. 11/06/19 25 Active cloNIDine HCL (CATAPRES) 0.2 mg Oral Tablet TAKE 1 TABLET BY MOUTH AT BEDTIME NIGHTLY 11/26/19 25 Active Active Problems Patient Care Coordination No te Formatting of this note migh t be different from the original. JULI 02/02/16 as expected Problem Noted Date Diagnosed Date Adenomatous polyp of colon 11/03/2024 Diarrhea 11/03/2024 Esophageal dysphagia 11/03/2024 Meningioma 02/11/2024 Overview (10/29/2024): Stable in 2024. Followed by neurology. Statin myopathy 11/29/2023 Overview (10/29/2024): Takes [place]. Obesity, Class II, BMI 35-39.9 06/18/2022 Overview (10/29/2024): Wt Readings from Last 3 Encounters: 10/29/24 286 lb (129.7 kg) 07/09/24 285 lb (129.3 kg) 06/26/24 290 lb (131.5 kg) Diet and exercise Ascending aorta dilation 06/15/2022 Overview (06/15/2022): 06/27/21 [...] hernia without obstruction or gangrene 06/02/2020 Overview (10/29/2024): May have recurrence vs diastasis recti. No pain. No enlargement. Has not followed up with surgery. No symptoms. Cardiomyopathy due to systemic disease Overview (10/29/2024): Seen on Echo and ECG during acute events related to bowel leak and sepsis. Later angiogram did not show wall motion abn and EF was normal. Echo in 2023 showed EF 50-55% with septal hypkenisis. LAD had a 40 stenosis. On BBlocker. Add ARB Continue medical management. 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 Not well controlled in office today. Denies chest pain and SOB, swelling, dizziness or orthostatics. Add valsartan Assessment & Plan (01/23/2024 11:17 AM EDT): [...] Problem Noted Date Diagnosed Date Resolved Date Memory changes 02/11/2024 10/29/2024 Aorto-iliac atherosclerosis 06/15/2022 10/29/2024 Overview (06/15/2022): 10/03/20 CT Abd/Pel Abdominal wall abscess 10/15/202006/18 Intra-abdominal adhesions 09/08/2020 Pain following surgery or procedure 09/08/2020 06/18/2022 Reactive airway disease without complication 06/18/2022 Overview (09/30/2019): Started a few years [...] colonic polyp 05/06/20192019 Tubular adenoma 05/06/2019 09/30/2019 BMI 33.0-33.9,adult 02/18/2019 10/30/19 25 Overview (09/30/2019): Wt Readings from Last 3 Encounters: 09/30/19 249 lb (112.9 kg) 07/28/19 234 lb 8 oz (106.4 kg) 07/07/19 234 lb (106.1 kg) Diet and exercise. Abnormal echocardiogram 12/31/201804/2019 Restless legs 12/03/2018 02/18/2019 Screening for HIV (human imm unodeficiency virus) 02/06/2017 10/29/2024 Overview (02/06/2017): HIV negative in 2016 Pulmonary nodule 02/17/2016 06/18/2022 Overview (02/18/2019): Stable [...] Encounters Date Type Department Care Team Description 02/15/2025 Results Follow-Up [address] [place] [address] Adarsh Collins MD COMPREHENSIVE METABOLIC PANEL, PROSTATE SPECIFIC ANTIGEN (SCREENING), LIPID PANEL REFLEX, BILIRUBIN DIRECT 02/12/2025 8:20 AM EST Clinical Support [address] [place] [address] Jace Chandler MA Pure hypercholesterolemia; Dyslipidemia; Mixed hyperlipidemia; Prostate cancer screening 02/09/[address] [place] [address] dAarsh Collins MD Appointment Needed (Per mychart) 02/09/2025 Travel 02/08/[address] [place] [address] Adarsh Collins MD Appointment Needed (Lab Draw) from Last 3 Months Immunizations Immunization Administration [...] COLECTOMY ; Surgeon: Andrzej Sparks MD; Location: [facility] OR; Service: [employer] ABDOMINAL EXPLORATION SURGERY [...] Sleep apnea resolved c/ weig ht loss Colon polyp Family History Medical History Relation Name Comments No Known Problems Father Cancer Mother utrerine Anesth Problems Neg Hx Relation Name Status Comments Father Maternal Grandfather Maternal Grandmother Mother Paternal Grandfather Paternal Grandmother Social History Tobacco Use Types Packs/Day Years Used Date Smoking Tobacco: Never Passive Smoke Exposure: Never Smokeless Tobacco: Never Tobacco Cessation:Counseling Given: Not Answered Alcohol Use Standard Drinks/Week Comments No 0 (1 standard drink = 0.6 oz pur e alcohol) Overall Financial Resource Strain (CARDIA) Answe r Date Recorded How hard is it for you to pa y for the very basics like food, housing, medical care, and heating? Not hard at all 10/26/2020 PHQ-2 Answer Date Recorded PHQ-2 Total Score 0 06/18/2022 [facility] [place] [facility] Occupat ional Health - Occupational Stress [...] Sign Reading Time Taken Comments Blood Pressure 171/92 12/01/2024 11:15 AM EDT Pulse 80 12/01/2024 11:15 AM EDT Temperature 36.7 C (98.1 F) 12/01/2024 8:30 AM EDT Respiratory Rate 16 12/01/2024 11:15 AM EDT Oxygen Saturation 96% 12/01/2024 11:15 AM EDT Inhaled Oxygen Concentration - - Weight 127.9 kg (282 lb) 12/01/2024 8:30 AM EDT Height 182.9 cm (6') 12/01/2024 8:30 AM EDT Body Mass Index 38.25 12/01/2024 8:30 AM EDT Plan of Treatment Upcoming Encounters Date Type Department Care Team (Late st Contact Info) Description 03/18/2025 9:00 AM EST Appointment Yann VELEZ [facility] [place] [address] [address] Lucille Martin, EYE SPECIALIST [address] [place] [address] 09/21/2025 9:45 AM EDT Appointment [facility] [address] [place] [address] [id number] Fara Jhaveri MD [facility] [place] [address] Health Maintenance Due Date Last Done Comments Pneumococcal Vaccine 50+ (1 of 2 - PCV) 08/23/1975 Cologuard 2001 FIT 2001 Sigmoidoscopy 2001 Virtual Colonography 2001 RSV or 60+ (1 - Risk 50-74 years 1-dose series) 2006 Zoster (2 of 2) 08/13/2022 06/18/2022 COVID-19 Vaccine ( - 2024- season) 2024 05/21/2020, 04/21/2020 Wellness Exam Medicare 10/30/2025 10/29/2024 Colon Cancer Screening 12/01/2027 Colonoscopy 12/01/2027 12/01/2024, 01/31, 06/13/2009 (Previously completed) DTaP/TDaP/Td (3 - Td or Tdap) 06/18/2032 06/18/2022, 06/20/2011 Hepatitis C Screening Completed 02/06/2017 Hepatitis B Vaccine Completed 07/01/2020, 02/01/2020, 12/31/2019 Influenza Vaccine Completed 03/01/2025, , 12/28/2016 (Declined), Additional history exists Meningococcal B Vaccine Aged Out No l [...] Philip CMA Medical Devices Implanted Type [employer] Sales Associate Device Identifier Shelf Expiration Date Model / Serial / Lot Mesh Bard Plug- Ex Large - [id number] Implanted:Qty: 1 on 06/15/2010 at [facility] Left: Inguinal CR BARD:DAVOL [id number] / / [id number] Patch Xl 10.8x13.7in Ovl [address] [employer] Vntrl Prt - [id number] Implanted:Qty: 1 on 09/08/2020 by Andrzej Sparks MD at [facility] N/A: Abdomen CR BARD:DAVOL 11/26/2020 [id number] / / [id number] Procedures Procedure Name Priority Date/Time Associated Diagnosis Comments BILIRUBIN DIRECT Routine 02/12/2025 8:19 AM EST Pure hypercholesterolemia LIPID PANEL REFLEX Routine 02/12/2025 8: 19 AM EST Mixed hyperlipidemia PROSTATE SPECIFIC ANTIGEN (SCREENING) Routine 02/12/2025 8:19 AM EST Prostate cancer screening COMPREHENSIVE METABOLIC PANEL Routine 02/12/2025 8:19 AM EST Mixed hyperlipidemia COLONOSCOPY Routine 12/01/2024 10:41 AM EDT Adenomatous polyp of colon, unspecified part of colon Diarrhea, unspecified type Gastroesophageal reflux disease without esophagitis Esophageal dysphagia HCV ANTIBODY SCREEN W/ REFLEX Routine 02/06/2017 12:27 PM EST Encounter for hepatitis C screening test for low risk patient from Last 3 Months or Most Recently Relevant to Health Maintenance Results * BILIRUBIN DIRECT (02/12/2025 8:19 AM EST) Bili Direct <0.2 0.0 - 0.3 mg/dL 02/12/2025 6:02 PM EST [facility] Blood VENOUS BLOOD / Unknown Venipuncture / Unknown 02/12/2025 8:19 AM EST 02/12/2025 8:19 AM EST us Curtis Zacarias MD CHEMISTRY ORDERABLES Final Resul t [facility] [address] [facility] [facility] , [place] [address] * (ABNORMAL) LIPID PANEL REFLEX (02/12/2025 8:19 AM EST) Cholesterol 149 <200 mg/dL 02/12/2025 6:02 PM EST [facility] Comment: < 200 Desirable 200 - 239 Borderline High >= 240 High Triglyceride 231(H) <150 mg/dL 02/12/2025 6:02 PM EST [facility] Comment: < 150 Normal 150 - 199 Borderline High 200 - 499 High >= 500 Very High HDL 38(L) >=40 mg/dL 02/12/2025 6:02 PM EST [facility] Comment: > 60 Optimal 40 - 60 Acceptable < 40 Low LDL Calculated 73 <100 mg/dL 02/12/2025 6:02 PM EST [facility] Comment: < 100 Optimal 100 - 129 Near or above optimal 130 - 159 Borderline High 160 - 189 High >= 190 Very High The National Institutes of Health (NIH) equation is used for all lipid panels that report calculated LDL (LDL-C). Non-HDL-C Calculated 111 <=129 mg/dL 02/12/2025 6:02 PM EST [facility] Comment: <130 Desirable 130-159 Above Desirable 160-189 Borderline High 190-219 High >= 220 Very High Fasting Specimen? Yes None 025 6:02 PM EST [facility] Blood VENOUS BLOOD / Unknown Venipuncture / Unknown 02/12/2025 8:19 AM EST 02/12/2025 8:19 AM EST Adarsh Collins MD CHEMISTRY ORDERABLES Final Result [facility] [address] [facility] , [address] [place] [id number] * PROSTATE SPECIFIC ANTIGEN (SCREENING) (02/12/2025 8:19 AM EST) Total Psa 3.10 <=4.00 ng/mL 02/12/2025 6:14 PM EST [facility] Blood VENOUS BLOOD / Unknown Venipuncture / Unknown 02/12/2025 8:19 AM EST 02/12/2025 8:19 AM EST Narrative [facility] [employer] [facility] - 02/12/2025 6:14 PM EST [...] hyperplasia or inflammatory conditions of the prostate. us Adarsh Collins MD CHEMISTRY ORDERABLES Final Result [facility] [address] [facility] , [address] [place] [id number] * (ABNORMAL) COMPREHENSIVE METABOLIC PANEL (02/12/2025 8:19 AM EST) Sodium 142 136 - 145 mmol/L 02/12/2025 6:02 PM EST [facility] Potassium 4.5 3.5 - 5.0 mmol/L 02/12/2025 6:02 PM EST [facility] Chloride 104 98 - 107 mmol/L 02/12/2025 6:02 PM EST [facility] Total CO2 27 22 - 29 mmol/L 02/12/2025 6:02 PM EST [facility] Anion Gap 11 7 - 16 mmol/L 02/12/2025 6:02 PM EST [facility] Calcium 9.9 8.8 - 10.4 mg/dL 02/12/2025 6:02 PM EST [facility] Glucose Lvl 112(H) 70 - 99 mg/dL 02/12/2025 6:02 PM EST [facility] BUN 23 8 - 23 mg/dL 02/12/2025 6:02 PM EST [facility] Creatinine 0.98 0.67 - 1.30 mg/dL 02/12/2025 6:02 PM EST [facility] Albumin 4.4 3.2 - 4.6 gm/dL 02/12/2025 6:02 PM EST [facility] Total Protein 7.0 6.4 - 8.3 gm/dL 02/12/2025 6:02 PM EST [facility] Bili Total 0.5 0.2 - 1.4 mg/dL 02/12/2025 6:02 PM EST [facility] ALT 31 <=41 U/L 02/12/2025 6:02 PM EST [facility] AST 22 <=40 U/L 02/12/2025 6:02 PM EST [facility] Alk Phos 80 40 - 129 U/L 02/12/2025 6:02 PM EST [facility] eGFR (CKD-EPIcr 2020) 84 >=60 mL/min/1.7 3 m2 02/12/2025 6:02 PM EST [facility] Comment:Estimated GFR was ca lculated using the CKD-EPIcr (2020) equation refit without race. The equation is recommended by the National Kidney Foundation - [place] Society of Nephrology Task Force. Blood VENOUS BLOOD / Unknown Venipuncture / Unknown 02/12/2025 8:19 AM EST 02/12/2025 8:19 AM EST us Adarsh Collins MD CHEMISTRY ORDERABLES Final Result [facility], [address] , [address] [place] [id number] * COLONOSCOPY (12/01/2024 10:41 AM EDT) Anatomical Region Laterality Modality Endoscopy Narrative 12/01/2024 10:48 AM EDT Table formatting from the original result was not included. Findings Healthy [id number] ileocolonic anastomosis in the ascending colon All observed locations appeared normal. Performed random biopsy using biopsy forceps. Moderate diverticulosis with multiple diverticula causing mild luminal narrowing in the descending colon and sigmoid colon Three internal medium, protruding (grade 2) hemorrhoids; no bleeding was observed Recommendation Await pathology results Recommend a high fiber diet. Okay to resume all home medications. Repeat colonoscopy in 3 years, due: 12/01/2027 Personal history of colon polyps GERD education Diverticulosis education Resume Omeprazole and Colestipol Pre-Procedure Diagnosis / Indication Esophageal dysphagia, Gastroesophageal reflux disease without esophagitis, Diarrhea, unspecified type, Adenomatous polyp of colon, unspecified part of colon Post-Procedure Diagnosis None Staff Staff Role No Staff Documented Medications See Anesthesia Record. Preprocedure A history and physical has been performed, and patient medication allergies have been reviewed. The patient's tolerance of previous anesthesia has been reviewed. The risks and benefits of the procedure and the sedation options and risks were discussed with the patient. All questions were answered and informed consent obtained. ASA 3 - Patient with severe systemic disease Details of the Procedure The patient underwent monitored anesthesia care, which was administered by an anesthesia professional. The patient's blood pressure, heart rate, level of consciousness, oxygen saturation, respirations, ECG and ETCO2 were monitored throughout the procedure. A digital rectal exam was performed. The scope was introduced through the anus and advanced to the site of the anastomosis. Retroflexion was performed in the rectum. The quality of bowel preparation was evaluated using the [place] Bowel Preparation Scale with scores of: right colon = not assessed, transverse colon = 3, left colon = 3. The total BBPS score was 6. The patient experienced no blood loss. The procedure was not difficult. The patient tolerated the procedure well. There were no apparent adverse events. Patient provided education and educated on specific discharge instructions. Patient educated on medications given during the procedure and new medications for discharge. Patient verbalizes understanding of discharge education. Patient stable and awaiting transport for discharge. Events Procedure Events Event Event Time ENDO SCOPE IN TIME 12/01/2024 9:58 AM ENDO SCOPE OUT TIME 12/01/2024 10:14 AM ENDO SCOPE IN TIME 12/01/2024 10:23 AM ENDO CECUM REACHED 12/01/2024 10:26 AM ENDO SCOPE WITHDRAW BEGIN 12/01/2024 10:27 AM TSG LUME TI REACHED 12/01/2024 10:27 AM ENDO SCOPE OUT TIME 12/01/2024 10:41 AM Specimens ID Type Source Tests Collected by Time 1 : antral erosions; r/o HP Tissue Gastric [facility] PATHOLOGY ORDER Gabino Chapman MD 12/01/2024 1015 2 : stricture Tissue Esophagus [facility] PATHOLOGY ORDER Gabino Chapman MD 12/01/2024 1015 3 : diarrhea; grossly normal, r/o microscopic colitis Tissue Colon [facility] PATHOLOGY ORDER Gabino Chapman MD 12/01/2024 1042 us Gabino Chapman MD ENDOSCOPY PROCEDURE ORDERABLES Final Result * HEPATITIS C ANTIBODY - SCREENING (02/06/2017 12:27 PM EST) Hep C Ab Negative Negative 02/07/2017 8:19 AM EST [facility] Blood VENOUS BLOOD / Unknown Venipuncture / Unknown 02/06/2017 12:27 PM EST 02/06/2017 12:27 PM EST us Adarsh Collins MD HEMATOLOGY ORDERABLES Final Result [facility] [address] [place] [address] from Last 3 Months or Most Recently Relevant to Health Maintenance Insurance MEDICARE ADVANTAGE MR MEDICARE ADVANTAGE MR ANTHEM MEDICARE ADVANTAGE MR Advance Directives For more information, please contact: [phone] * Full Code (Latest Code Status on [...] 12:49 PM 06/05/2019 10:43 PM Care Teams Cement Worker Relationship Specialty Start Date End Date Adarsh Collins MD [facility] [place] [address] PCP - General Family Medicine 06/11/11 Sharon Kilpatrick MD [address] [facility] [address] [place] [address] Consulting Physician Internal Medicine-Nephrology 06/18/19
--- OUTSIDE RECORDS SUMMARY | 2025-03-17 20:51 | XMS_ITS | Clinical Summary ---
Author Organization Healthcare Address [address] [place] [address] Care Team Providers Care Laborer [employer] Name Role Phone Pcp, No Primary Care [...] by mouth twice a day. 11/25/2023 Active Family History Medical History Relation Name Comments [...] [facility]-Depression Screening 1956 [facility]-Hepatitis C Screening 1956 [facility]-/Child/Adol SDOH Screenings 1956 [facility]- SDOH Screenings 1974 [facility]-Adult SDOH Screenings 1974 CT Colonography 2001 Colonoscopy 2001 FIT-DNA 2001 FIT 2001 FOBT 2001 Sigmoidoscopy 2001 [facility]-Colorectal Cancer Screening 2001 [facility]-Pneumococcal Vaccine: 50 + Years (1 of 1 - PCV) 2006 [facility]-Zoster Vaccines (2 of 2) 08/13/2022 06/18/2022 [facility]-Medicare Annual Wellness (AWV) 06/19/2023 06/18/2022 [id number] Vaccine (3 - 2024- season) 2024 05/21/2020, 04/21/2020 [facility]-Influenza Vaccine (#1) 11/30/202412/28, 12/31/2013 [facility]-RSV Vaccine: 60+ Years o r (1 - 1-dose 75+ series) 08/23/2031 [facility]-DTaP,Tdap,and Td Vaccine s (3 - Td or Tdap) 06/18/2032 06/18/2022, 06/20/2011 [facility]-Hepatitis A Vaccines Aged Out 021, 12/31/2019 No longer eligible based on patient's age to complete this topic [facility]-Obesity Intervention Completed 025, 04/27/2024, 03/16/2024 HPV Vaccines (No Doses Required) Completed [facility]-HIB Vaccines Aged Out No longer e ligible based on patient's age to complete this topic [facility]-IPV Vaccines Aged Out No longer e ligible based on patient's age to complete this topic [facility]-Rotavirus Vaccines Aged Out No lo nger eligible based on patient's age to complete this topic Insurance ANTHEM MEDICARE Care Teams Laborer [employer] Relationship Specialty Start Date End Date Pcp, [place] [address] PCP - General Family Medicine 03/09/24
--- OUTSIDE RECORDS SUMMARY | 2025-03-17 20:51 | XMS_ITS | Clinical Summary ---
Author Organization [facility] Address [facility] [place] [address] Care Team Providers Care Desktop Engineer Name Role Phone Unavailable Primary Care Provider Unavailabl e Source Comments This information has been disclosed to you from confidential records protectedfrom disclosure by state law. You shall make no further disclosure of thisinformation without the specific, written, and informed release of theindividual to whom it pertains, or as otherwise permitted by law. A generalauthorization for the release of medical or other information is not sufficientfor the purposes of therelease of HIV test results or diagnoses. [id number] Social History Tobacco Use Types Packs/Day Years Used Date Smoking Tobacco: Never Assessed Sex and Gender Information Value Date Recorded Sex Assigned at Not on file Legal Sex Male 6:41 PM EST Gender Identity Not on file Sexual Orientation Not on file Plan of Treatment Not on file
--- OUTSIDE RECORDS SUMMARY | 2025-03-17 20:51 | XMS_ITS | Encounter Summary ---
Author Organization [employer] [place] [place] [address] Care Team Providers Care Horticultural Nursery Assistant Name Role Phone Adarsh Collins MD Primary Care Provider [phone] Sharon Kilpatrick MD Unavailable [phone] Reason for Visit * Reason Onset Date Comments Appointment Needed 02/09/2025 Per Sc[employer]jones Encounter Details Date Type Department Care Team (Late st Contact Info) Description 02/09/2025 Telephone [facility]ANDI [place] [facility] [place] [address] Adarsh Collins MD [address] [place] [address] [place] [address] Appointment Needed (Per Aircrm) Social History Tobacco Use Types Packs/Day Years [...] Date Recorded PHQ-2 Total Score 0 06/18/2022 [facility] - Occupational Stress [...] Assessment Author No 05/25/2020 3:53 PM EST Michael, A salima Judy, CCMA * Because of a physical, mental [...] Suellen Rodriguez CCMA documented in this encounter Miscellaneous Notes * Telephone Encounter - Maddie Villalobos - 02/09/2025 2:24 PM EST Select the most appropriate reason for this telephone message: Adpoints Appointment Request Copy and Paste the appointment request below: Appointment Request From: Felix Lares With Provider: Adarsh Collins MD [[facility]] Preferred Date Range: 02/11/2025 - 02/19/2025 Preferred Times: Saturday Morning, Saturday Morning, Saturday Morning, Morning, Saturday Morning Reason for visit: Routine or Follow-Up Office Visit Health Maintenance Topic: Comments: I need Tammi to do several blood draws for Dr. Collins and Dr. Zacarias. Draws are supposed to be NPO 12 hours, so, prefer as early in the morning as possible. Prefer NOT 02/11, or Thursday 02/15.Thank you! Felix documented in this encounter Plan of Treatment Upcoming Encounters Date Type Department Care Team (Late st Contact Info) Description 03/18/2025 9:00 AM EST Appointment [facility] [place] [address] Lucille Martin, COTTON CHOPPER [address] [facility] [address] [place] [address] 09/21/2025 9:[address] [facility] MRI [address] [place] [id number] Fara Jhaveri MD [address] [place] [address] documented as of this encounter [...] documented as of this encounter Care Teams Horticultural Nursery Assistant Relationship Specialty Start Date End Date Adarsh Collins MD [employer] [facility] [place] [address] PCP - General Family Medicine 06/11/11 Sharon Kilpatrick MD [address] [facility] [address] [place] [address] Consulting Physician Internal Medicine-Nephrology 06/18/19 documented as of this encounter
--- OUTSIDE RECORDS SUMMARY | 2025-03-17 20:51 | XMS_ITS | Encounter Summary ---
Author Organization Healthcare Address [address] [place] [id number] Care Team Providers Care Audiology Assistant Name Role Phone Pcp, No Primary Care Provider Unavailabl e Reason for Referral * Consultation (Routine) - Closed Specialty Diagnoses / Procedures Referred By Yessenia t Referred To Contact Dentist / Pain Medicine Diagnoses Obstructive sleep apnea syndrome Eileen Hansen MD [address] [facility] [address] [place] [address] Phone: tel: fax: Patricia Yen, DDS [address] [place] [address] Phone: tel: fax: Referral ID Status Reason Start Date Expiration Date Visits Re quested Visits Authorized [id number] Closed 02/10/2024 08/11/2025 1 1 Encounter Details Date Type Department Care Team (Late st Contact Info) Description 02/10/2024 [facility] [address] [place] [address] Eileen Hansen MD [address] [facility] [address] [place] [address] Obstructive [...] (pediatric) documented in this encounter Care Teams Audiology Assistant Relationship Specialty Start Date End Date Pcp, Anaya [address] [place] [address] PCP - General Family Medicine 03/09/24 documented as of this encounter
--- OUTSIDE RECORDS SUMMARY | 2025-03-17 20:51 | XMS_ITS | Encounter Summary ---
Author Organization [place] [address] Care Team Providers Care Supervisor Tan Room Name Role Phone Adarsh Collins MD Primary Care Provider [phone] Sharon Kilpatrick MD Unavailable [phone] Reason for Visit * Reason Onset Date Comments Appointment Needed 02/08/2025 Lab Draw Encounter Details Date Type Department Care Team (Late st Contact Info) Description 02/08/2025 Telephone [facility]ANDI [place] [facility] [place] [address] Adarsh Collins MD [address] [place] [address] [place] [address] Appointment Needed (Lab Draw) Social History Tobacco Use Types Packs/Day Years [...] Date Recorded PHQ-2 Total Score 0 06/18/2022 [facility] Answer Date Recorded [...] encounter Miscellaneous Notes * Telephone Encounter - Junie Luciano MA - 02/08/2025 1:49 PM EST scheduled * Telephone Encounter - Sindy Dunbar MA - 02/08/2025 12:07 PM EST Select the most appropriate reason for this telephone message: Appointment Needed Who is Calling: Patient Return Method of Communication: Phone Call Provider Preference: Other n/a Type of Appt Needed: Lab Detailed Reason for Appt: Pt has lab work needing drawn ordered on 10/29/24 Is the caller rescheduling an existing appointment: No Requested Timeframe: Other Saturday or Saturday Morning Reason Scheduling Assistance is Needed: Call Center not permitted to schedule Additional Information: Please contact patient/caller to schedule, thank you, documented in this encounter Plan of Treatment Upcoming Encounters Date Type Department Care Team (Late st Contact Info) Description 03/18/2025 9:00 AM EST Appointment Yann [facility] [place] [address] Lucille Martin, PERINATAL SPECIALIST [address] [facility] [address] [place] [address] 09/21/2025 9:45 AM EDT Appointment [facility] [address] [place] [facility] [place] [address] documented as of this encounter [...] documented as of this encounter Care Teams Supervisor Tan Room Relationship Specialty Start Date End Date Adarsh Collins MD [address] [facility] [place] [address] PCP - General Family Medicine 06/11/11 Sharon Kilpatrick MD [address] [facility] [address] [place] [address] Consulting Physician Internal Medicine-Nephrology 06/18/19 documented as of this encounter
--- OUTSIDE RECORDS SUMMARY | 2025-03-17 20:51 | XMS_ITS | Encounter Summary ---
Author Organization [place] [address] Care Team Providers Care Classified Advertising Supervisor Name Role Phone Adarsh Collins MD Primary Care Provider [phone] Sharon Kilpatrick MD Unavailable [phone] Reason for Visit * Reason Onset Date Comments Appointment Needed 12/04/2024 blood work, p t requesting Tammi to do this. Encounter Details Date Type Department Care Team (Late st Contact Info) Description 12/04/2024 Telephone [facility]ANDI [place] [facility] [place] [address] Adarsh Collins MD [address] [place] [address] [place] [address] Appointment Needed (blood work, pt requesting Tammi to do this. ) Social History Tobacco Use Types Packs/Day Years [...] Date Recorded PHQ-2 Total Score 0 06/18/2022 [facility] - [facility]ational Stress Questionnaire Answer Date [...] Suellen Meade CCMA documented in this encounter Miscellaneous Notes * Telephone Encounter - Jace Chandler MA - 12/04/2024 2:19 PM EDT Appt made * Telephone Encounter - Jose Alfredo Downey - 12/04/2024 12:57 PM EDT Select the most appropriate reason for this telephone message: Appointment Needed Appointment Requested By: Patient Provider Preference: Maryann pierre Type of Appt Needed: Other blood work Detailed Reason for Appt: blood work, pt requesting Tammi to do this. Requested Timeframe: Other carina Reason Scheduling Assistance is Needed: Call Center not permitted to schedule Return Method of Communication: Phone Call Additional Information: please advise pt. documented in this encounter Plan of Treatment Upcoming Encounters Date Type Department Care Team (Late st Contact Info) Description 03/18/2025 9:00 AM EST Appointment Yann [facility] [place] [address] Lucille Martin, POMOLOGY TEACHER [address] [facility] [address] [place] [address] 09/21/2025 9:[address] [facility] [place] MRI [address] [place] [address] Fara Jhaveri MD [address] [place] [address] documented as of this encounter [...] documented as of this encounter Care Teams Classified Advertising Supervisor Relationship Specialty Start Date End Date Adarsh Collins MD [address] [employer] [facility] [place] [address] PCP - General Family Medicine 06/11/11 Sharon Kilpatrick MD [address] [place] [address] [address] [place] [address] Consulting Physician Internal Medicine-Nephrology 06/18/19 documented as of this encounter
--- OUTSIDE RECORDS SUMMARY | 2025-03-17 20:51 | XMS_ITS | Encounter Summary ---
Author Organization [place] [address] Care Team Providers Care Hearing Therapist Name Role Phone Adarsh Collins MD Primary Care Provider [phone] Sharon Kilpatrick MD Unavailable Karol Burroughs RN Unavailable Unavailabl e Encounter Details Date Type Department Care Team (Late st Contact Info) Description 02/23/2019 Lab Requisition [facility] [place] [address] Claudia Dunn MD Personal history of colonic [...] Description 03/18/2025 9:00 AM EST Appointment Yann [facility] [place] [address] Lucille Martin, WOOD HEEL BACK LINER [address] [place] [address] 09/21/2025 9:45 AM EDT Appointment [facility] [place] MRI [address] [place] [address] Fara Jhaveri MD [address] [place] [address] documented as of this encounter Goals Goal Patient Goal Type Associated Problems Recent Progress Patient-Stated? Author Blood Pressure < 140/90 Blood Pressure 171/92(2024 11:15 AM EDT) No Tamera, Shaina, BATON TEACHER Maintain a healthy diet, exercise regularly and [...] PM EST) CASE REPORT Surgical Pathology Case: [id number] Authorizing Provider: Claudia Dunn MD Collected: 02/23/2019 1300 Ordering Location: [facility] Received: 02/23/2019 0812 Pathologist: Og Palomo MD Specimens: A) - Ileocecal valve B) - Large Intestine, Right/Ascending Colon C) - Large Intestine, Left/Descending Colon D) - Large Intestine, Rectum 02/24/2019 2:52 PM EST [facility] CLINICAL HISTORY Personal history of colon polyps. 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 - Negative for dysplasia or granuloma. B) Colon, proximal ascending, biopsy: - Sessile serrated polyp/adenoma. C) Colon, descending, biopsy: - Benign mucosal polyp. D) Rectum, biopsy: - Tubular adenoma. - Hyperplastic polyps. 02/24/2019 2:52 PM EST [employer] [facility] at 1452 EST COMMENT 02/24/2019 2:52 PM EST [employer] [facility] GROSS DESCRIPTION Part A) Received in [...] one cassette. /ZN 02/24/2019 2:52 PM EST [facility] MICROSCOPIC DESCRIPTION Microscopic examination is performed and the findings corroborate the diagnosis. 02/24/2019 2:52 PM EST [facility] SPECIAL STAINS 02/24/2019 2:52 PM EST [facility] EMBEDDED IMAGES 02/24/2019 2:52 PM EST [facility] Tissue ILEOCECAL VALVE STRUCTURE / Unknown [...] Dunn MD PATHOLOGY [place] [address] documented in this encounter Visit Diagnoses Diagnosis [...] documented as of this encounter Care Teams Hearing Therapist Relationship Specialty Start Date End Date Adarsh Collins MD [address] [place] [address] [place] [address] PCP - General Family Medicine 06/11/11 Sharon Kilpatrick MD [address] [place] [address] Consulting Physician Internal Medicine-Nephrology 06/18/19 Karol Burroughs, RN Data Communications Engineer Registered Nurse 10/26/20 10/26/20 documented as of this encounter
--- OUTSIDE RECORDS SUMMARY | 2025-03-17 20:51 | XMS_ITS | Clinical Summary ---
Author Organization 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
--- OUTSIDE RECORDS SUMMARY | 2025-03-17 20:51 | XMS_ITS | Encounter Summary ---
Author Organization [place] [address] Care Team Providers Care Facilities Project Manager Name Role Phone Adarsh Collins MD Primary Care Provider [phone] Sharon Kilpatrick MD Unavailable [phone] Encounter Details Date Type Department Care Team (Latest Contact Info) Description 02/15/2025 Results Follow-Up SEP [facility] [address] [place] [address] Adarsh Collins MD [address] [facility] [place] [address] COMPREHENSIVE METABOLIC PANEL, PROSTATE SPECIFIC ANTIGEN (SCREENING), LIPID PANEL REFLEX, BILIRUBIN DIRECT Social History Tobacco Use Types Packs/Day Years [...] Date Recorded PHQ-2 Total Score 0 06/18/2022 [facility] [place] [facility] - Occupational [...] Info) Description 03/18/2025 9:00 AM EST Appointment [facility] [place] [address] Lucille Martin, TRICOT KNITTER [address] [facility] [address] [place] [address] 09/21/2025 9:45 AM EDT Appointment [facility] MRI [address] [place] [address] Fara Jhaveri MD [facility] [place] [address] documented as of this encounter [...] documented as of this encounter Care Teams Facilities Project Manager Relationship Specialty Start Date End Date Adarsh Collins MD [address] [place] [address] PCP - General Family Medicine 06/11/11 Sharon Kilpatrick MD [address] [facility] [address] [place] [address] Consulting Physician Internal Medicine-Nephrology 06/18/19 documented as of this encounter
--- OUTSIDE RECORDS SUMMARY | 2025-03-17 20:51 | XMS_ITS | Encounter Summary ---
Author Organization [facility] [place] [address] Care Team Providers Care Hoist Cylinder Loader Name Role Phone Adrash Collins MD Primary Care Provider [phone] Sharon Kilpatrick MD Unavailable [phone] Encounter Details Date Type Department Care Team (Latest Contact Info) Description 02/09/2025 Travel Social History Tobacco Use Types Packs/Day Years Used Date Smoking Tobacco: Never Passive Smoke Exposure: Never Smokeless Tobacco: Never Alcohol Use Standard Drinks/Week Comments No 0 (1 standard drink = 0.6 oz pur e alcohol) Overall Financial Resource Strain (CARDI) Answe r Date Recorded How hard is it for you to pa y for the very basics like food, housing, medical care, and heating? Not hard at all 10/26/2020 PHQ-2 Answer Date Recorded PHQ-2 Total Score 0 06/18/2022 [facility] - Occupational Stress [...] Info) Description 03/18/2025 9:00 AM EST [facility] [place] [address] Lucille Martin, USAMA [address] [place] [facility] [address] [place] [address] 09/21/2025 9:45 AM EDT Appointment [facility] MRI [address] [place] [address] [place], [place] [address] Fara Jhaveri MD [facility] [place] [address] documented as of this encounter Goals Goal Patient Goal Type Associated Problems Recent Progress Patient-Stated? Author Blood Pressure < 140/90 Blood Pressure 171/92(2024 11:15 AM EDT) No Shaina Philip CMA Maintain a healthy diet, exercise regularly and maintain an ideal body weight General No hSaina Philip CMA documented as of this encounter Visit Diagnoses Not on filedocumented in this encounter Additional Health Concerns Assessment Noted Time A fall risk assessment has been complete d for the patient 06/18/2022 8:30 AM EDT documented as of this encounter Care Teams Hoist Cylinder Loader Relationship Specialty Start Date End Date Adarsh Collins MD [address] [place] [address] [place] [address] PCP - General Family Medicine 06/11/11 Sharon Kilpatrick MD [address] [facility] [address] [place] [address] Consulting Physician Internal Medicine-Nephrology 06/18/19 documented as of this encounter
--- OUTSIDE RECORDS SUMMARY | 2025-03-17 20:51 | XMS_ITS | Encounter Summary ---
Author Organization [place] [address] Care Team Providers Care Sweet Goods Machine Operator Name Role Phone Adarsh Collins MD Primary Care Provider [phone] Sharon Kilpatrick MD Unavailable Karol Burroughs RN Unavailable Unavailabl e Encounter Details Date Type Department Care Team (Late st Contact Info) Description 02/23/2019 Orders Only SEP [facility] [address] [facility] [address] [place] [address] Claudia Dunn MD Social History Tobacco Use [...] Description 03/18/2025 9:00 AM EST Appointment [facility] [place] [address] Lucille Martin, USAMA [address] [place] [address] 09/21/2025 9:45 AM EDT Appointment [facility] [address] [place] [address] Fara Jhaveri MD [address] [place] [address] documented as of this encounter [...] PM EST) 02/23/2019 1:00 PM EST Impressions [facility] - 02/23/2019 1:29 PM EST [...] GI PROCEDURE ORDERABLES Edited Result - Final [facility] 1 [place] [address] documented in this encounter Visit Diagnoses Not on filedocumented in this encounter Additional Health Concerns Infection Onset Date Last Indicated Resolved Time R/O C-Diff 06/09/2019 06/09/2019 06/10/2019 6:52 AM EDT R/O C-Diff 06/14/2019 06/14/2019 06/14/2019 7:37 PM EDT COVID-19 02/05/2020 02/05/2020 03/31/2020 10:1 4 PM EST R/O C-Diff 2020 2020 2020 7:01 PM EDT documented as of this encounter Care Teams Sweet Goods Machine Operator Relationship Specialty Start Date End Date Adarsh Collins MD [address] [place], [place] [phone] PCP - General Family Medicine 06/11/11 Sharon Kilpatrick MD [address] [facility] [address] [place] [address] Consulting Physician Internal Medicine-Nephrology 06/18/19 Karol Burroughs, RN Card Mounter Registered Nurse 10/26/20 10/26/20 documented as of this encounter
== END 2025-03-17 23:59 | disposition home or self-care (01) ==
LOC: LAB.DROPOF 20:48
PROVIDERS: PCP Nurse Practitioner; Visit Provider Nurse Practitioner
DX: R10.31 Right lower quadrant pain (principal); R10.32 Left lower quadrant pain
CPT/HCPCS: 80053; 85025